=== PATIENT | female | born 1985 | race Caucasian/White ===

== ENCOUNTER 2021-07-03 12:35 | Outpatient (REF) | payer OTHER, SELFPAY ==
[2021-07-05 14:40] LABS: COVID-19 RT-PCR UVMMC Result Negative (Negative)
== END 2021-07-03 12:36 | disposition home or self-care (01) ==
LOC: LBN 12:35
PROVIDERS: PCP Family Medicine; Visit Provider Physician Assistant Medical
DX: Z20.822 Contact with and (suspected) exposure to COVID-19 (principal); J02.9 Acute pharyngitis, unspecified
CPT/HCPCS: U0003; 87070

== ENCOUNTER 2021-09-25 19:11 | Outpatient (REF) | payer OTHER, SELFPAY ==
[2021-09-25 20:48] LABS: Anion Gap 13.9 mmol/L (3-11); BUN 6 mg/dL (7-18); CO2 23.1 mmol/L (21.0-32.0); CREATININE 1.1 mg/dL (0.55-1.02); Calcium 8.5 mg/dL (8.5-10.1); Chloride 104 mmol/L (98-107); Estimated GFR 56.86 (mL/min/1.73m2); Glucose 128 mg/dL (74-106); Potassium 3.4 mmol/L (3.5-5.1); Sodium 141 mmol/L (136-145)
== END 2021-09-25 19:12 | disposition home or self-care (01) ==
LOC: LBN 19:11
PROVIDERS: PCP Family Medicine; Visit Provider Nurse Practitioner Family
DX: U07.1 COVID-19 (principal)
CPT/HCPCS: 80048

== ENCOUNTER 2021-10-19 19:34 | Emergency (ER) | payer OTHER, SELFPAY ==
[2021-10-19 20:08] VITALS: BP 134/91; PULSE 108; RESP 16; TEMP 36.3; O2SAT 96
[2021-10-19] MEDS: Albuterol 2.5 MG/3 ML INH SOLN VIAL UPD (20:45)
[2021-10-19] MEDS: predniSONE 20 MG TAB 40 MG PO (21:20)
[2021-10-19] MEDS: Albuterol HFA 8 GM 60 PUFF INH IH (21:28)
[2021-10-19] MEDS: Inhaler, Assist Device 1 EACH MC (21:29)
[2021-10-19 21:37] VITALS: BP 138/90; PULSE 97; RESP 16; TEMP 36.3; O2SAT 94
--- NOTE | 2021-10-19 21:42 | ED.GENADUL_ITS ---
Discharge Plan Disposition Patient Disposition: HOME Condition: Stable Discharge Details Clinical Impression: Bronchitis Primary Care Provider: Chely Cantrell V ED Provider: Marialuisa Roman Home Meds and New Rx's Prescriptions: New prednisone 20 mg tablet 40 mg PO ONCE Qty: 8 0RF Continued loratadine 10 MG tablet,disintegrating 10 mg PO PRN Label Comments: 06/18/13- Pt has not taken since Jan 2013, takes for seasonally allergies fluticasone propionate 50 mcg/actuation spray,suspension 1 spray INTRANASAL PRN PRN vfyiuchgx-GVU-SV-acetaminophen 7.5-60-30-1,000 mg/30 mL Liquid 30 ml PO PRN PRN No Action doxycycline hyclate 100 mg capsule 100 mg PO BID Qty: 20 0RF Discharge Instructions Instructions: Acute Bronchitis (ED) Additional Instructions: Use your inhaler, 2 puffs every 4 hours as needed Take the prednisone for the next several days Return earlier should you have new or worsening complaints including chest pain that is worsening, shortness of breath, fever, chills Referrals: Chely Cantrell MD [Primary Care Provider] - Discharge Data Discharge Date/Time-TO BE ENTERED AT DEPARTURE: 10/19/21 21:27 Medical Decision Making Patient appears well, she symptomatically improved Her repeat oxygen is 97% on room air and she is no longer tachycardic, 94 She is given a dose of prednisone and discharged home with 5 days of prednisone, she is given an albuterol Hailer She was comfortable discharge home at this time Return precautions discussed and patient No clinical evidence of pulmonary embolism, feeling symptomatically improved, no chest pain Lungs are clear to auscultation and no hypoxia, no indication for chest x-ray at time of my assessment Medical Records Medical records reviewed: Yes I reviewed the patient's medical records. Lab Data Lab results reviewed: Yes I reviewed the patient's lab results. HPI General Date/Time Provider Initiated Documentation: 10/19/21 19:38 . HPI Narrative: 36-year-old female is otherwise healthy presents with report of cough for the past 4 days. Patient states that she feels as though she cannot take a complete inhalation secondary to coughing and tightness. She denies history of asthma. She does not smoke tobacco. She is status post COVID approximately 3 weeks ago. She states she felt fine. Denies illness and now she is symptomatic, she suspects it is pollen related. She has been taking antihistamines daily. She denies any fever or chills. She denies chance of . She denies prior history of coagulopathy or exogenous hormones. Denies recent flights, surgeries, long drives Related Data Home Medications Medication Instructions Recorded Confirmed loratadine 10 mg disintegrating 10 mg PO PRN 05/30/13 10/20/21 tablet yjkcekdzr-WJH-GO-acetaminophen 7.5 30 ml PO PRN PRN 10/19/21 10/19/21 mg-60 [id number]/30mL oral liqd fluticasone propionate 50 1 spray intranasal PRN PRN 10/19/21 10/20/21 mcg/actuation nasal spray,suspension prednisone 20 mg tablet 40 mg PO ONCE #8 tabs 10/19/21 10/20/21 doxycycline hyclate 100 mg capsule 100 mg PO BID #20 caps 10/20/21 Previous Rx's Medication Instructions Recorded prednisone 20 mg tablet 40 mg PO ONCE #8 tabs 10/19/21 doxycycline hyclate 100 mg capsule 100 mg PO BID #20 caps 10/20/21 Allergies Allergy/AdvReac Type Severity Reaction Status Date / Time amoxicillin [Amoxicillin] Allergy Severe hives Unverified 10/20/21 08:38 azithromycin Allergy Severe Hives Unverified 10/20/21 08:38 Penicillins Allergy Severe Hives Unverified 10/20/21 08:38 shellfish derived Allergy Severe hives Unverified 10/20/21 08:38 gluten AdvReac Severe Unverified 10/20/21 08:38 General Stated Complaint: RespSymp BEN: 3 Review of Systems All systems reviewed & are unremarkable except as noted in HPI and below PFSH All Active Problems (Updated 10/20/21 @ 11:06 by SILVA Hicks) Bronchitis (Acute) Pneumonia (Acute) Social History Smoking/Tobacco Use Status: Never Smoking risk assessment performed?: Yes Alcohol Intake: current Alcohol Intake frequency: holidays/special occasions only Drug use: Never Do you feel safe at home: Yes Do you feel safe in your relationship?: Yes Exam Const General: cooperative, comfortable and no acute distress Orientation: alert and oriented x3 Resp Effort & Inspection: normal respiratory effort Auscultation: clear to auscultation bilaterally Cardio Rate: regular rate Rhythm: regular rhythm Skin General skin exam: no rashes or lesions noted Neuro General: patient alert and patient oriented x3 Extrem Other: No calf swelling or tenderness appreciated Course Vital Signs Vital signs: Vital Signs Temperature 36.3 C L 10/19/21 20:08 Pulse 108 H 10/19/21 20:08 Respiratory Rate 16 10/19/21 20:08 Blood Pressure 134/91 H 10/19/21 20:08 Pulse Oximetry 96 10/19/21 20:08 Temperature 36.3 C L 10/19/21 20:08 Temperature Source Skin 10/19/21 20:08 Pulse 108 H 10/19/21 20:08 Respiratory Rate 16 10/19/21 20:08 Respiratory Effort 10/19/21 20:19 Blood Pressure 134/91 H 10/19/21 20:08 Blood Pressure Position Sitting 10/19/21 20:08 Pulse Oximetry 96 10/19/21 20:08 Oxygen Delivery Method Room Air 10/19/21 20:08 Oxygen Flow Rate 0 10/19/21 20:08 Pain Level 5 10/19/21 20:08
== END 2021-10-19 21:27 | disposition home or self-care (01) ==
PROVIDERS: Emergency Provider Physician Assistant; PCP Family Medicine
DX: J20.9 Acute bronchitis, unspecified (principal)
CPT/HCPCS: 94640; 99283; J7512; J7613

== ENCOUNTER 2021-10-20 08:27 | Emergency (ER) | payer OTHER, SELFPAY ==
[2021-10-20 08:34] VITALS: BP 135/82; PULSE 106; RESP 16; TEMP 36.8; O2SAT 95
[2021-10-20 09:04] LABS: Abs Immature Grans 0.03 10^3/uL (0.0-0.06); Absolute Basophil Count 0.02 10^3/uL (0.0-0.2); Absolute Eosinophil Count 0.01 10^3/uL (0.0-0.7); Absolute Lymphocyte Count 2.29 10^3/uL (1.2-3.4); Absolute Monocyte Count 0.36 10^3/uL (0.1-0.8); Absolute Neutrophil Count 5.71 10^3/uL (1.2-6.7); Basophils % 0.2; Eosinophils % 0.1; HCT 42.3 % (36.0-46.0); Immature Grans % 0.4; Lymphocytes % 27.2; MCH 29.8 pg (27.0-33.0); MCHC 35.5 % (32.0-36.0); MCV 84 fL (80-95); MPV 9.8 fL (8.0-11.0); Monocytes % 4.3; Neutrophils % 67.8; Platelet Count 289 10^3/uL (130-400); RBC 5.03 10^6/uL (3.93-5.22); RDW 12.7 % (11.7-14.6); RDW-SD 37.9 fL; WBC 8.42 10^3/uL (4.4-10.8)
--- NOTE | 2021-10-20 09:08 | ED.GENADUL_ITS ---
Discharge Plan Disposition Patient Disposition: HOME Condition: Stable Discharge Details Clinical Impression: Pneumonia Primary Care Provider: Chely Cantrell V ED Provider: Kamron Cruz Home Meds and New Rx's Prescriptions: New doxycycline hyclate 100 mg capsule 100 mg PO BID Qty: 20 0RF Continued loratadine 10 MG tablet,disintegrating 10 mg PO PRN Label Comments: 06/18/13- Pt has not taken since Jan 2013, takes for seasonally allergies fluticasone propionate 50 mcg/actuation spray,suspension 1 spray INTRANASAL PRN PRN ycmuwweol-MWD-LY-acetaminophen 7.5-60-30-1,000 mg/30 mL Liquid 30 ml PO PRN PRN prednisone 20 mg tablet 40 mg PO ONCE Qty: 8 0RF Discharge Instructions Instructions: Pneumonia (ED) Additional Instructions: Work-up reveals no evidence of PE. Doxycycline as directed for pneumonia. Continue the medications prescribed to you yesterday during your ER visit. Please watch for new or worsening symptoms and return to the ER for any concern s. Lastly, please contact your primary care provider to discuss your ER visit and need for outpatient reevaluation Medical Decision Making 36-year-old female who is 2-3 weeks status post COVID presents to the ER today reporting being diagnosed with bronchitis yesterday, cough x1 week, this morning with 1 episode of hemoptysis. Clinically she appears well, nontoxic, no respiratory distress. Plan is to obtain routine laboratory values including a D-dimer given her recent COVID diagnosis in the setting of hemoptysis. At this time no indication for breathing treatment as lungs are clear to auscultation Laboratory values are grossly unremarkable for any obvious emergent process. Awaiting D-dimer D-dimer minimally elevated at 547, will pursue CTA of the chest. Heart rate is currently 92. O2 sats 96% on room air. Patient appears well, nontoxic, no respiratory distress CTA reveals no PE but she does have patchy infiltrates on the right middle and lower lobe. Discussed findings with patient and will initiate doxycycline therapy for pneumonia. She will continue taking the medications prescribed yesterday as well Standard discharge and return precautions were provided. Patient understands, is agreeable to this plan, and has no additional questions or concerns upon discharge. This documentation was generated using [employer] system, please disregard any oddities of phrase or misspellings. Medical Records Medical records reviewed: Yes I reviewed the patient's medical records. Imaging Data Radiologic Study: Attestation: I personally reviewed and interpreted this imaging study as follows: Imaging: CT Scan Radiologist's impression: CT CHEST PE CTA EXAM: CT CHEST PE CTA CLINICAL HISTORY: 2weeks s/p covid, hemoptysis, tachy, elevated dime. TECHNIQUE: Imaging Protocol: Axial CT angiography was performed with multi- slice acquisition and multi-planar reconstructions as well as axial, coronal and sagittal MIP reconstructions. CONTRAST MATERIAL: Intravenous: Omnipaque 350 Contrast volume:100 ml COMPARISON: No exams were available for comparison FINDINGS: Pulmonary Arteries: No evidence of filling defect to suggest pulmonary emboli. Tracheobronchial tree: Patent where visualized. Mediastinum and Mandy: No dominant adenopathy or fluid collection. Pulmonary parenchyma: Patchy right lower lobe and right middle lobe infiltrates. No consolidation or dominant measurable mass. Pleura: No effusion or pneumothorax. Heart: The heart is not dilated. No coronary artery calcifications are seen. Aorta: Thoracic aorta non-dilated. No aneurysm. No dissection. Upper abdomen: Left adrenal adenoma. Bones: Unremarkable for age. Tubes, Catheters, and Lines: IMPRESSION: No evidence of pulmonary embolism. Patchy infiltrates right middle and lower lobe. Lab Data Lab results reviewed: Yes I reviewed the patient's lab results. Labs: Laboratory Tests Range/Units 10/20/21 10/20/21 10/20/21 08:57 08:57 08:57 WBC (4.4-10.8) 10^3/uL 8.42 RBC (3.93-5.22) 10^6/uL 5.03 Hgb (11.2-15.7) g/dL 15.0 Hct (36.0-46.0) % 42.3 MCV (80-95) fL 84 MCH (27.0-33.0) pg 29.8 MCHC (32.0-36.0) % 35.5 RDW (11.7-14.6) % 12.7 Plt Count (130-400) 10^3/uL 289 MPV (8.0-11.0) fL 9.8 Immature Gran % 0.4 Neutrophils % 67.8 Lymphocytes % 27.2 Monocytes % 4.3 Eosinophils % 0.1 Basophils % 0.2 Nucleated RBC % (0.0-0.3) % 0.0 Absolute Neutrophils (1.2-6.7) 10^3/uL 5.71 Absolute Lymphocytes (1.2-3.4) 10^3/uL 2.29 Absolute Monocytes (0.1-0.8) 10^3/uL 0.36 Absolute Eosinophils (0.0-0.7) 10^3/uL 0.01 Absolute Basophils (0.0-0.2) 10^3/uL 0.02 PT (9.3-11.0) sec 10.3 INR (0.9-1.1) 1.0 APTT (21.0-27.5) sec 24.5 D-Dimer (<500) ng/mlFEU 547 H Sodium (136-145) mmol/L 137 Potassium (3.5-5.1) mmol/L 3.7 Chloride (98-107) mmol/L 102 Carbon Dioxide (21.0-32.0) mmol/L 24.2 Anion Gap (3-11) mmol/L 10.8 BUN (7-18) mg/dL 8 Creatinine (0.55-1.02) mg/dL 1.0 Estimated GFR/1.73 m2 (mL/min/1.73m2) >= 60.00 Glucose (74-106) mg/dL 141 H Calcium (8.5-10.1) mg/dL 8.8 Magnesium (1.8-2.4) mg/dL 1.8 Total Bilirubin (0.2-1.0) mg/dL 0.3 AST (15-37) U/L 20 ALT (14-59) U/L 21 Alkaline Phosphatase (46-116) U/L 106 Troponin I (<or=60) ng/L < 50 Total Protein (6.4-8.2) g/dL 8.0 Albumin (3.4-5.0) g/dL 3.8 HPI General Mode of arrival: ambulatory . Date/Time Provider Initiated Documentation: 10/20/21 08:31 . Limitations to Documentation: no limitations . Information obtained by: patient . HPI Narrative: This is a 36-year-old female, denies significant past medical history, presents to the ER 2-3 weeks status post COVID, seen in the ER yesterday for cough and chest tightness that began roughly 1 week ago, this morning had 1 episode of hemoptysis which prompted her to return to the ER. She denies fever, shortness of breath, chest pain, abdominal pain, pain or swelling her lower extremities. Patient states that she did not have a work-up yesterday but did have a single dose of steroids and was provided with a neb and inhaler. She denies history of DVT or PE. She is taking nxap-qhv-zwuuyjf medications for her cough and seaso nal allergies. Related Data Home Medications Medication Instructions Recorded Confirmed loratadine 10 mg disintegrating 10 mg PO PRN 05/30/13 10/20/21 tablet rueuamtao-YDP-WX-acetaminophen 7.5 30 ml PO PRN PRN 10/19/21 10/19/21 mg-60 [id number]/30mL oral liqd fluticasone propionate 50 1 spray intranasal PRN PRN 10/19/21 10/20/21 mcg/actuation nasal spray,suspension prednisone 20 mg tablet 40 mg PO ONCE #8 tabs 10/19/21 10/20/21 doxycycline hyclate 100 mg capsule 100 mg PO BID #20 caps 10/20/21 Previous Rx's Medication Instructions Recorded prednisone 20 mg tablet 40 mg PO ONCE #8 tabs 10/19/21 doxycycline hyclate 100 mg capsule 100 mg PO BID #20 caps 10/20/21 Allergies Allergy/AdvReac Type Severity Reaction Status Date / Time amoxicillin [Amoxicillin] Allergy Severe hives Unverified 10/20/21 08:38 azithromycin Allergy Severe Hives Unverified 10/20/21 08:38 Penicillins Allergy Severe Hives Unverified 10/20/21 08:38 shellfish derived Allergy Severe hives Unverified 10/20/21 08:38 gluten AdvReac Severe Unverified 10/20/21 08:38 General Stated Complaint: RespSymp BEN: 3 Review of Systems Constitutional Constitutional: Denies fever(s) and Denies headache(s) ENT Ears, Nose, Mouth, and Throat: Denies headache(s) and Denies neck pain Cardiovascular Cardiovascular: Denies chest pain and Denies dyspnea Respiratory Respiratory: Reports cough and Denies dyspnea Gastrointestinal Gastrointestinal: Denies abdominal pain, Denies nausea and Denies vomiting Musculoskeletal Musculoskeletal: Denies back pain and Denies neck pain Integumentary/Breasts Skin/Breast: Denies rash Neurologic Neurologic: Denies headache(s) Hematologic/Lymphatic Hematologic/Lymphatic: Denies easy bleeding and Denies easy bruising PFSH All Active Problems (Updated 10/20/21 @ 11:06 by SILVA Hicks) Bronchitis (Acute) Pneumonia (Acute) Social History Smoking/Tobacco Use Status: Never Smoking risk assessment performed?: Yes Alcohol Intake: current Alcohol Intake frequency: holidays/special occasions only Drug use: Never Do you feel safe at home: Yes Do you feel safe in your relationship?: Yes Exam Const General: cooperative, healthy appearing, comfortable and no acute distress Orientation: alert and awake HENMT Head: normal to inspection, normocephalic and atraumatic Face and sinus: normal facial exam Mouth: moist mucous membranes Throat: posterior oropharynx normal Eyes Conjunctivae: conjunctivae normal Neck Neck: normal visual inspection, full ROM, trachea midline and supple Resp Effort & Inspection: normal respiratory effort, able to speak in complete sentences and cough Quality of cough: dry Auscultation: clear to auscultation bilaterally Cardio Rate: tachycardic (102) Rhythm: regular rhythm GI Palpation: not soft and nontender Back/Spine/Pelvis Back: No back tenderness Skin General skin exam: no rashes or lesions noted Neuro General: patient alert, patient awake, moves all extremities and no focal motor deficits Cognition: normal cognition Speech: speech normal Gait: normal gait Motor: muscle tone normal throughout Sensory Exam: no sensory deficits noted Extrem General: normal to inspection, full ROM, capillary refill normal, no pedal edema and no calf tenderness Psych Appearance: grossly normal Mental Status: mental status grossly normal Course Vital Signs Vital signs: Vital Signs Temperature 36.8 C 10/20/21 08:34 Pulse 106 H 10/20/21 08:34 Respiratory Rate 16 10/20/21 08:34 Blood Pressure 135/82 10/20/21 08:34 Pulse Oximetry 95 10/20/21 08:34 Temperature 36.8 C 10/20/21 08:34 Pulse 106 H 10/20/21 08:34 Respiratory Rate 16 10/20/21 08:34 Respiratory Effort 10/20/21 08:39 Respiratory Depth Normal 10/20/21 08:39 Blood Pressure 135/82 10/20/21 08:34 Pulse Oximetry 95 10/20/21 08:34 Lab/Test Results Lab/Test Results: Laboratory Tests Range/Units 10/20/21 08:57 WBC (4.4-10.8) 10^3/uL 8.42 RBC (3.93-5.22) 10^6/uL 5.03 Hgb (11.2-15.7) g/dL 15.0 Hct (36.0-46.0) % 42.3 MCV (80-95) fL 84 MCH (27.0-33.0) pg 29.8 MCHC (32.0-36.0) % 35.5 RDW (11.7-14.6) % 12.7 Plt Count (130-400) 10^3/uL 289 MPV (8.0-11.0) fL 9.8 Immature Gran % 0.4 Neutrophils % 67.8 Lymphocytes % 27.2 Monocytes % 4.3 Eosinophils % 0.1 Basophils % 0.2 Nucleated RBC % (0.0-0.3) % 0.0 Absolute Neutrophils (1.2-6.7) 10^3/uL 5.71 Absolute Lymphocytes (1.2-3.4) 10^3/uL 2.29 Absolute Monocytes (0.1-0.8) 10^3/uL 0.36 Absolute Eosinophils (0.0-0.7) 10^3/uL 0.01 Absolute Basophils (0.0-0.2) 10^3/uL 0.02 POC- Test(urine) Negative
[2021-10-20 09:30] LABS: PTT Activated 24.5 sec (21.0-27.5); Prothrombin Time 10.3 sec (9.3-11.0)
[2021-10-20 09:34] LABS: ALT 21 U/L (14-59); AST 20 U/L (15-37); Albumin 3.8 g/dL (3.4-5.0); Alkaline Phosphatase 106 U/L (46-116); Anion Gap 10.8 mmol/L (3-11); BUN 8 mg/dL (7-18); Bilirubin, Total 0.3 mg/dL (0.2-1.0); CO2 24.2 mmol/L (21.0-32.0); Calcium 8.8 mg/dL (8.5-10.1); Chloride 102 mmol/L (98-107); Glucose 141 mg/dL (74-106); Magnesium 1.8 mg/dL (1.8-2.4); Potassium 3.7 mmol/L (3.5-5.1); Sodium 137 mmol/L (136-145); Troponin I < 50 ng/L (<or=60)
--- NOTE | 2021-10-20 09:45 | DI.CT_ITS ---
Exam(s) CT CHEST PE CTA EXAM: CT CHEST PE CTA CLINICAL HISTORY: 2weeks s/p covid, hemoptysis, tachy, elevated dime. TECHNIQUE: Imaging Protocol: Axial CT angiography was performed with multi-slice acquisition and mu lti-planar reconstructions as well as axial, coronal and sagittal MIP reconstructions. CONTRAST MATERIAL: Intravenous: Omnipaque 350 Contrast volume:100 ml COMPARISON: No exams were available for comparison FINDINGS: Pulmonary Arteries: No evidence of filling defect to suggest pulmonary emboli. Tracheobronchial tree: Patent where visualized. Mediastinum and Mandy: No dominant adenopathy or fluid collection. Pulmonary parenchyma: Patchy right lower lobe and right middle lobe infiltrates. No consolidation or dominant measurable mass. Pleura: No effusion or pneumothorax. Heart: The heart is not dilated. No coronary artery calcifications are seen. Aorta: Thoracic aorta non-dilated. No aneurysm. No dissection. Upper abdomen: Left adrenal adenoma. Bones: Unremarkable for age. Tubes, Catheters, and Lines: IMPRESSION: No evidence of pulmonary embolism. Patchy infiltrates right middle and lower lobe. RADIATION DOSE DELIVERED: 670.95mGy.cm Total DLP DATA REPOSITORY: All CT scans at this facility are submitted to the National Radiology Data Registry (NRDR) Dose Index Registry (DIR) with the [employer] (A[employer]). RADIATION OPTIMIZATION: All CT scans at this facility use at least one of these dose optimization te chniques: automated exposure control; mA and/or kV adjustment per patient size (includes targeted exa ms where dose is matched to clinical indication); or iterative reconstruction.
[2021-10-20 09:49] LABS: D-Dimer 547 ng/mlFEU (<500)
[2021-10-20] MEDS: Omnipaque 350 MG/ML 100 ML BTL IJ (10:30)
[2021-10-20] MEDS: Normal Saline Flush 10 ML SYR IVP (10:30)
[2021-10-20 11:08] VITALS: BP 130/68; PULSE 95; RESP 16; O2SAT 98
[2021-10-20] MEDS: Doxycycline Hyclate 100 MG CAP PO (11:09)
== END 2021-10-20 11:14 | disposition home or self-care (01) ==
PROVIDERS: Emergency Provider Physician Assistant; PCP Family Medicine
DX: J18.9 Pneumonia, unspecified organism (principal); Z86.16 Personal history of COVID-19; R79.1 Abnormal coagulation profile; R04.2 Hemoptysis; R00.0 Tachycardia, unspecified
CPT/HCPCS: 36415; 71275; 80053; 81025; 99285; 83735; 84484; 85025; 85379; 85610; 85730; 99284; J3490

== ENCOUNTER 2022-02-17 15:44 | Outpatient (REF) | payer OTHER, SELFPAY ==
--- NOTE | 2022-02-17 14:20 | PAPFT_PTH ---
PATIENT: Joyce Madden LOC: [facility] U#:[id number] AGE/SX: 36/F ROOM: RE02/17/[address]: JAIRON Perez : 1985 BED: DIS: 02/17/2022 SPEC #: [id number] RECD: 02/18/22 12:56 STATUS: DAVID REQ #: [id number] GUY: 02/17/22 14:[address]: Cassie Beatty DEPT: [facility] Cytology RECD BY: Marialuisa June Tissues: 1 - CX/ENDOCX FOR PAP SMEARS Procedures: PAP THIN PREP/UVM Screening HPV DNA PROBE Comments: [id number]
== END 2022-02-17 15:45 | disposition home or self-care (01) ==
LOC: LBN 15:44
PROVIDERS: PCP Nurse Practitioner Family; Visit Provider Nurse Practitioner Family
DX: Z12.4 Encounter for screening for malignant neoplasm of cervix (principal); Z11.51 Encounter for screening for human papillomavirus (HPV)
CPT/HCPCS: 88142; 87624

== ENCOUNTER 2022-03-11 04:48 | Outpatient (CLI) | payer OTHER, SELFPAY ==
[2022-03-11 08:30] LABS: Hemoglobin A1C 5.4 % (<5.7)
[2022-03-11 08:55] LABS: Anion Gap 6.1 mmol/L (3-11); BUN 13 mg/dL (7-18); CO2 27.9 mmol/L (21.0-32.0); CREATININE 0.9 mg/dL (0.55-1.02); Calculated LDL 119 mg/dL (<100); Chloride 105 mmol/L (98-107); Cholesterol 199 mg/dL (<200); Estimated GFR 86.03 (mL/min/1.73m2); Glucose 92 mg/dL (74-106); HDL Cholesterol 52 mg/dL (40-60); Potassium 4.2 mmol/L (3.5-5.1); Sodium 139 mmol/L (136-145); TSH (W/Ref FT4) 1.01 uIU/mL (0.36-3.74); Triglyceride 142 mg/dL (<150)
== END 2022-03-11 04:49 | disposition home or self-care (01) ==
PROVIDERS: PCP Nurse Practitioner Family; Visit Provider Nurse Practitioner Family
DX: Z00.00 Encounter for general adult medical examination without abnormal findings (principal)
CPT/HCPCS: 36415; 80048; 80061; 83036; 84443

== ENCOUNTER 2022-06-28 17:53 | Emergency (ER) | payer OTHER, SELFPAY ==
[2022-06-28 17:58] VITALS: BP 142/95; PULSE 124; RESP 20; TEMP 36.8; O2SAT 97
--- NOTE | 2022-06-28 18:15 | RT.EKG_ITS ---
APPROVED REPORT Exam: Resting ECG Reason for Exam: Shortness of breath Patient Location: E HR:104 bpm ECG Measurements Heart Rate 104 AXIS AK 152 P 40 QRSd 81 QRS 13 QT 330 T 3 QTc 435 Conclusion Sinus tachycardia...rate> 99 sinus tach, normal axis, non ischemic
--- NOTE | 2022-06-28 18:23 | DI.CT_ITS ---
Exam(s) CT CHEST PE CTA EXAM: CT CHEST PE CTA CLINICAL HISTORY: Shortness of breath. TECHNIQUE: Imaging Protocol: CT angiography of the chest was performed using pulmonary embolus candy col. Multi planar reconstructions were performed. CONTRAST MATERIAL: Intravenous: Omnipaque 350 Contrast volume: 100 cc COMPARISON: CT CT CHEST PE CTA from 10/20/2021 FINDINGS: CHEST: PULMONARY ARTERIES: Less than optimal bolus filling of the pulmonary arterial tree. For, there are n o obvious intraluminal filling defects to suggest the presence of acute pulmonary emboli. LUNGS: There are no infiltrates nor evidence of pulmonary infarction. No ominous pulmonary nodules.. There are no pleural effusions. MEDIASTINUM: There is no hilar nor mediastinal adenopathy. Visualized thyroid unremarkable. CARDIAC: Heart size is upper normal. There is no pericardial effusion.Caliber of the thoracic aorta is within normal limits. There is no significant shift of the interventricular septum. PARTIALLY VISUALIZED UPPERMOST ABDOMEN: No obvious findings OSSEOUS: No significant osseous lesions.. IMPRESSION: 1. No evidence of acute pulmonary emboli. No evidence of pulmonary infarction.No pleural effusions. 2. No confluent infiltrates. No intrathoracic adenopathy. RADIATION DOSE DELIVERED: 610.27mGy.cm Total DLP DATA REPOSITORY: All CT scans at this facility are submitted to the National Radiology Data Registry (NRDR) Dose Index Registry (DIR) with the [employer] (ACR). RADIATION OPTIMIZATION: All CT scans at this facility use at least one of these dose optimization te chniques: automated exposure control; mA and/or kV adjustment per patient size (includes targeted exa ms where dose is matched to clinical indication); or iterative reconstruction.
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
[2022-06-28] MEDS: Normal Saline - Diluent 50 ML VIAL IJ (18:37)
[2022-06-28] MEDS: Normal Saline Flush 10 ML SYR IVP (18:38)
[2022-06-28] MEDS: Omnipaque 350 MG/ML 100 ML BTL IJ (18:38)
[2022-06-28 18:39] LABS: Abs Immature Grans 0.06 10^3/uL (0.0-0.06); Absolute Basophil Count 0.08 10^3/uL (0.0-0.2); Absolute Eosinophil Count 0.37 10^3/uL (0.0-0.7); Absolute Lymphocyte Count 3.28 10^3/uL (1.2-3.4); Absolute Neutrophil Count 6.33 10^3/uL (1.2-6.7); Basophils % 0.7; Eosinophils % 3.4; HCT 41.5 % (36.0-46.0); Immature Grans % 0.5; Lymphocytes % 29.8; MCH 28.9 pg (27.0-33.0); MCHC 33.7 % (32.0-36.0); MCV 86 fL (80-95); MPV 9.9 fL (8.0-11.0); Monocytes % 8.2; Neutrophils % 57.4; Platelet Count 294 10^3/uL (130-400); RBC 4.85 10^6/uL (3.93-5.22); RDW 12.4 % (11.7-14.6); RDW-SD 38.5 fL; WBC 11.02 10^3/uL (4.4-10.8)
[2022-06-28 18:59] LABS: ALT 22 U/L (14-59); AST 12 U/L (15-37); Albumin 3.7 g/dL (3.4-5.0); Alkaline Phosphatase 107 U/L (46-116); Anion Gap 7.8 mmol/L (3-11); BUN 13 mg/dL (7-18); Bilirubin, Total 0.4 mg/dL (0.2-1.0); CO2 28.2 mmol/L (21.0-32.0); Calcium 8.6 mg/dL (8.5-10.1); Chloride 103 mmol/L (98-107); Estimated GFR 75.81 (mL/min/1.73m2); Glucose 135 mg/dL (74-106); Potassium 3.6 mmol/L (3.5-5.1); Sodium 139 mmol/L (136-145); Total Protein 7.3 g/dL (6.4-8.2); Troponin I < 50 ng/L (<or=60)
[2022-06-28] MEDS: Albuterol 2.5 MG/3 ML INH SOLN VIAL UPD (19:09)
[2022-06-28] MEDS: Normal Saline 1,000 ML 1000 ML IV (19:09)
[2022-06-28] MEDS: Benzonatate 100 MG CAP PO (19:09)
[2022-06-28 19:17] LABS: COVID-19 PCR Negative (Negative); Influenza A PCR Negative (Negative); Influenza B PCR Negative (Negative); RSV PCR Negative (Negative)
--- NOTE | 2022-06-28 19:24 | DI.VRAD_ITS ---
PROCEDURE INFORMATION: Exam: CTA Chest With Contrast Exam date and time: 06/28/2022 6:34 PM Age: 36 years old Clinical indication: Other: SOB, chest pain/pressure TECHNIQUE: Imaging protocol: Computed tomographic angiography of the chest with contrast. 3D rendering (Not supervised by radiologist): MIP and/or 3D reconstructed images were created by the technologist. Radiation optimization: All CT scans at this facility use at least one of these dose optimization techniques: automated exposure control; mA and/or kV adjustment per patient size (includes targeted exams where dose is matched to clinical indication); or iterative reconstruction. Contrast material: OMNIPAQUE 350; Contrast volume: 100 ml; Contrast route: INTRAVENOUS (IV); COMPARISON: CT CHEST PE CTA 10/20/2021 10:24 AM FINDINGS: Pulmonary arteries: No acute pulmonary emboli. Aorta: Unremarkable. No aortic aneurysm. No aortic dissection. Lungs: Minimal bilateral upper and lower lobe bronchial wall thickening, compatible with reactive airway disease or bronchitis. Pleural spaces: Unremarkable. No pneumothorax. No pleural effusion. Heart: Unremarkable. No cardiomegaly. No pericardial effusion. Lymph nodes: Unremarkable. No enlarged lymph nodes. Adrenal glands: Partially visualized 17 mm benign left adrenal adenoma. Bones/joints: Unremarkable. No acute fracture. Soft tissues: Unremarkable. IMPRESSION: 1. No acute pulmonary emboli. 2. Minimal bilateral upper and lower lobe bronchial wall thickening, compatible with reactive airway disease or bronchitis. Dictated and Authenticated by: Cj Bravo MD. Ordering:FAVIOLA Reinoso MD
[2022-06-28 19:31] LABS: Source Nasopharynx
[2022-06-28 20:24] VITALS: PULSE 104; RESP 20; O2SAT 94
--- NOTE | 2022-06-30 08:48 | NUR.NOTE ---
Nursing Note: Accessed chart to determine orders for EKG and to determine whether or not one needs to be cancelled.
== END 2022-06-28 20:25 | disposition home or self-care (01) ==
PROVIDERS: Emergency Provider Nurse Practitioner Family; PCP Nurse Practitioner Family
DX: J20.9 Acute bronchitis, unspecified (principal); R00.0 Tachycardia, unspecified; D72.821 Monocytosis (symptomatic); R74.01 Elevation of levels of liver transaminase levels; R73.9 Hyperglycemia, unspecified; Z77.22 Contact with and (suspected) exposure to environmental tobacco smoke (acute) (chronic); Z20.822 Contact with and (suspected) exposure to COVID-19
CPT/HCPCS: 71275; 80053; 81025; 87637; 93005; 94640; 96360; 99285; 84484; 85025; 93010; 99284; J3490; J7613

== ENCOUNTER 2022-12-28 15:43 | Emergency (ER) | payer OTHER, SELFPAY ==
[2022-12-28] VITALS (24 sets, daily range): BP systolic 126–138; BP diastolic 70–105; PULSE 99–120; RESP 18–20; TEMP 36.8; O2SAT 90–99
--- NOTE | 2022-12-28 15:45 | RT.EKG_ITS ---
APPROVED REPORT Exam: Resting ECG Reason for Exam: sob Patient Location: E HR:112 bpm ECG Measurements Heart Rate 112 AXIS MN 147 P 0 QRSd 71 QRS -19 QT 298 T -17 QTc 407 Conclusion Sinus tachycardia...rate> 99 Inferior infarct, old...Q >35mS, II III aVF sinus tachycardua, left axus, inferior q waves with poor r wave progression anteriorly
--- NOTE | 2022-12-28 16:00 | DI.CT_ITS ---
Exam(s) CT CHEST PE CTA EXAM: CT CHEST PE CTA CLINICAL HISTORY: hemoptysis, tachycardia, cough, chest pain. TECHNIQUE: Imaging Protocol: Axial CT angiography was performed with multi-slice acquisition and mu lti-planar reconstructions as well as axial, coronal and sagittal MIP reconstructions. CONTRAST MATERIAL: Intravenous: Omnipaque 350 Contrast volume:100 ml COMPARISON: CT CT CHEST PE CTA from 10/20/[address] CHEST PE CTA from 06/28/2022 FINDINGS: Pulmonary Arteries: Somewhat limited by respiratory motion. No evidence of filling defect to suggest pulmonary emboli. Tracheobronchial tree: Patent where visualized. Mediastinum and Mandy: No dominant adenopathy or fluid collection. Pulmonary parenchyma: No consolidation or dominant measurable mass. Expiratory changes. Pleura: No effusion or pneumothorax. Heart: The heart is not dilated. No coronary artery calcifications are seen. Aorta: Thoracic aorta non-dilated. No aneurysm. No dissection. Upper abdomen: Stable left adrenal adenoma. No follow-up recommended. Bones: Unremarkable for age. Tubes, Catheters, and Lines: IMPRESSION: No evidence of pulmonary embolism or other acute abnormality in the chest. RADIATION DOSE DELIVERED: 689.86mGy.cm Total DLP DATA REPOSITORY: All CT scans at this facility are submitted to the National Radiology Data Registry (NRDR) Dose Index Registry (DIR) with the [employer] [place] (A[employer]). RADIATION OPTIMIZATION: All CT scans at this facility use at least one of these dose optimization te chniques: automated exposure control; mA and/or kV adjustment per patient size (includes targeted exa ms where dose is matched to clinical indication); or iterative reconstruction.
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
[2022-12-28 16:24] LABS: Abs Immature Grans 0.05 10^3/uL (0.0-0.06); Absolute Basophil Count 0.08 10^3/uL (0.0-0.2); Absolute Eosinophil Count 0.15 10^3/uL (0.0-0.7); Absolute Lymphocyte Count 3.33 10^3/uL (1.2-3.4); Absolute Monocyte Count 0.99 10^3/uL (0.1-0.8); Basophils % 0.7; Eosinophils % 1.3; HCT 40.5 % (36.0-46.0); HGB 13.6 g/dL (11.2-15.7); Immature Grans % 0.4; Lymphocytes % 29.3; MCH 28.2 pg (27.0-33.0); MCHC 33.6 % (32.0-36.0); MCV 84 fL (80-95); MPV 9.4 fL (8.0-11.0); Monocytes % 8.7; Neutrophils % 59.6; Platelet Count 320 10^3/uL (130-400); RBC 4.83 10^6/uL (3.93-5.22); RDW 12.7 % (11.7-14.6); RDW-SD 38.4 fL; WBC 11.35 10^3/uL (4.4-10.8)
[2022-12-28 16:25] LABS: Absolute Neutrophil Count 6.76 10^3/uL (1.2-6.7)
[2022-12-28 16:38] LABS: PTT Activated 26.3 sec (21.5-31.9)
[2022-12-28 16:47] LABS: ALT 19 U/L (14-59); AST 12 U/L (15-37); Albumin 3.7 g/dL (3.4-5.0); Alkaline Phosphatase 108 U/L (46-116); Anion Gap 11.2 mmol/L (3-11); BUN 8 mg/dL (7-18); Bilirubin, Total 0.5 mg/dL (0.2-1.0); CO2 22.8 mmol/L (21.0-32.0); CREATININE 0.9 mg/dL (0.55-1.02); Calcium 8.4 mg/dL (8.5-10.1); Chloride 104 mmol/L (98-107); Glucose 103 mg/dL (74-106); NT-proBNP 6 pg/mL (<300); Potassium 3.7 mmol/L (3.5-5.1); Sodium 138 mmol/L (136-145); Total Protein 7.4 g/dL (6.4-8.2)
[2022-12-28 16:48] LABS: Troponin I < 50 ng/L (<or=60)
[2022-12-28] MEDS: Dexamethasone 10 MG/ML VIAL IVP (17:05)
[2022-12-28] MEDS: Albuterol 2.5 MG/3 ML INH SOLN VIAL UPD (17:05)
[2022-12-28] MEDS: Normal Saline 1,000 ML 1000 ML IV (17:05)
[2022-12-28] MEDS: Omnipaque 350 MG/ML 100 ML BTL IJ (18:23)
[2022-12-28] MEDS: Normal Saline Flush 10 ML SYR IVP (18:24)
[2022-12-28] MEDS: Normal Saline - Diluent 50 ML VIAL IJ (18:24)
== END 2022-12-28 19:54 | disposition home or self-care (01) ==
PROVIDERS: Emergency Provider Emergency Medicine; PCP Nurse Practitioner Family
DX: R04.2 Hemoptysis (principal); R05.9 Cough, unspecified; R07.89 Other chest pain; J40 Bronchitis, not specified as acute or chronic; R00.0 Tachycardia, unspecified; Z80.1 Family history of malignant neoplasm of trachea, bronchus and lung
CPT/HCPCS: 71275; 80053; 81025; 93005; 94640; 96374; 99285; 83880; 84484; 85025; 85610; 85730; 93010; 99284; J1100; J3490; J7613

== ENCOUNTER 2022-12-30 08:16 | Outpatient (RCR) | payer OTHER, SELFPAY ==
--- NOTE | 2022-12-30 08:15 | HOLTER_ITS ---
APPROVED REPORT Conclusion This is a 48-hour Holter monitor, ordered for tachycardia Rhythm throughout is sinus. Average heart rate is 88. Minimum was 64, maximum 126 There were a total of 12 isolated ventricular ectopic beats There were no supraventricular dysrhythmias Patient symptoms did not correspond to any dysrhythmia
== END 2022-12-30 23:59 | disposition home or self-care (01) ==
LOC: CARDOPNVT 08:16
PROVIDERS: PCP Nurse Practitioner Family; Visit Provider Nurse Practitioner Family
DX: R00.0 Tachycardia, unspecified (principal)
CPT/HCPCS: 93225

== ENCOUNTER 2023-01-11 03:08 | Outpatient (CLI) | payer OTHER, SELFPAY ==
[2023-01-11] MEDS: Albuterol HFA 18 GM 200 PUFF INH IH (17:03)
[2023-01-11] MEDS: Methacholine 100 MG VIAL IH (17:03)
[2023-01-11] MEDS: Inhaler, Assist Device 1 EACH MC (17:04)
--- NOTE | 2023-01-18 09:08 | W.PFT ---
Date of service: 01/11/23 Time of Service: 14:44 Pulmonary Function Test Result Indications: Dyspnea Interpretation Spirometry: There is no baseline airflow limitation. There was a 11% decrease in FEV1 with administration of 16mg/mL methacholine. Lung Volumes: Normal lung volumes Diffusion Capacity: Increased diffusion Airway Pressure: Normal airway resistance. Impression Normal pulmonary function testing with a negative methacholine challenge. The elevated diffusion is due to obesity. Clinical Correlation therefore is recommended.
== END 2023-01-11 03:09 | disposition home or self-care (01) ==
LOC: RT 03:08
PROVIDERS: PCP Nurse Practitioner Family; Visit Provider Nurse Practitioner Family
DX: R06.00 Dyspnea, unspecified (principal)
CPT/HCPCS: 94060; 94070; 94726; 94729; 94010; J7674

== ENCOUNTER 2023-01-11 10:36 | Outpatient (RCR) | payer OTHER, SELFPAY | END 2023-01-29 23:59 | disposition home or self-care (01) | LOC: CARDOPNVT 10:36 | PROVIDERS: PCP Nurse Practitioner Family; Visit Provider Nurse Practitioner Family | DX: R00.0 Tachycardia, unspecified (principal) | CPT/HCPCS: 93226 ==

== ENCOUNTER 2023-06-14 03:13 | Outpatient (CLI) | payer OTHER, SELFPAY ==
[2023-06-14 11:27] LABS: Panorama Kit Sent via Fed Ex
[2023-06-14 11:34] LABS: Abs Immature Grans 0.04 10^3/uL (0.0-0.06); Absolute Basophil Count 0.04 10^3/uL (0.0-0.2); Absolute Eosinophil Count 0.11 10^3/uL (0.0-0.7); Absolute Lymphocyte Count 2.46 10^3/uL (1.2-3.4); Absolute Monocyte Count 0.71 10^3/uL (0.1-0.8); Absolute Neutrophil Count 6.56 10^3/uL (1.2-6.7); Basophils % 0.4; Eosinophils % 1.1; HGB 13.8 g/dL (11.2-15.7); Immature Grans % 0.4; Lymphocytes % 24.8; MCH 29.5 pg (27.0-33.0); MCHC 35.4 % (32.0-36.0); MCV 83 fL (80-95); MPV 10.1 fL (8.0-11.0); Monocytes % 7.2; Neutrophils % 66.1; Platelet Count 301 10^3/uL (130-400); RBC 4.68 10^6/uL (3.93-5.22); RDW 13.1 % (11.7-14.6); RDW-SD 39.7 fL; WBC 9.92 10^3/uL (4.4-10.8)
[2023-06-14 11:48] LABS: Glucose,1 Hr (Glucola) 145 mg/dL (80-140)
[2023-06-14 12:00] LABS: TSH (W/Ref FT4) 0.65 uIU/mL (0.36-3.74)
[2023-06-14 18:34] LABS: Hepatitis B Surface Ag Negative (Negative)
[2023-06-14 19:09] LABS: Hepatitis C Ab w Rflx HCV PCR Negative (Negative)
[2023-06-14 19:55] LABS: HIV-1/2 Ag & Ab Screen Negative (Negative)
[2023-06-15 10:52] LABS: Varicella IgG Antibody Positive (See Note)
[2023-06-15 10:59] LABS: Rubella IgG Ab (UVM) Positive (See Note)
[2023-06-16 15:17] LABS: Syphilis IgG w/Reflex Nonreactive (Nonreactive)
== END 2023-06-14 03:14 | disposition home or self-care (01) ==
LOC: LBO 03:13
PROVIDERS: PCP Nurse Practitioner Family; Visit Provider Advanced Practice Midwife
DX: Z34.91 Encounter for supervision of normal pregnancy, unspecified, first trimester (principal)
CPT/HCPCS: 36415; 82950; 86787; 86803; 86850; 86900; 86901; 87340; 87389; 84443; 85025; 86762; 86780

== ENCOUNTER 2023-06-14 12:52 | Outpatient (REF) | payer OTHER, SELFPAY ==
[2023-06-15 12:58] LABS: Chlamydia Result Negative (Negative); GC Result Negative (Negative)
== END 2023-06-14 12:53 | disposition home or self-care (01) ==
LOC: LBN 12:52
PROVIDERS: PCP Nurse Practitioner Family; Visit Provider Advanced Practice Midwife
DX: Z34.91 Encounter for supervision of normal pregnancy, unspecified, first trimester (principal); Z11.3 Encounter for screening for infections with a predominantly sexual mode of transmission; Z3A.11 11 weeks gestation of pregnancy
CPT/HCPCS: 80348; 87491; 87591; 87086

== ENCOUNTER 2023-06-23 01:29 | Outpatient (CLI) | payer OTHER, SELFPAY ==
[2023-06-23 10:21] LABS: Glucose 1 Hour 183 mg/dL
[2023-06-23 12:30] LABS: Glucose 3 Hour 62 mg/dL
== END 2023-06-23 01:30 | disposition home or self-care (01) ==
LOC: LBO 01:29
PROVIDERS: PCP Nurse Practitioner Family; Visit Provider Advanced Practice Midwife
DX: Z34.91 Encounter for supervision of normal pregnancy, unspecified, first trimester (principal)
CPT/HCPCS: 36415; 82951

== ENCOUNTER 2023-10-06 05:13 | Outpatient (CLI) | payer OTHER, SELFPAY ==
[2023-10-06 09:20] LABS: Abs Immature Grans 0.09 10^3/uL (0.0-0.06); Absolute Basophil Count 0.03 10^3/uL (0.0-0.2); Absolute Lymphocyte Count 2.35 10^3/uL (1.2-3.4); Absolute Monocyte Count 0.84 10^3/uL (0.1-0.8); Absolute Neutrophil Count 7.63 10^3/uL (1.2-6.7); Basophils % 0.3 %; Eosinophils % 0.9 %; HCT 36.4 % (36.0-46.0); HGB 12.9 g/dL (11.2-15.7); Immature Grans % 0.8 %; Lymphocytes % 21.3 %; MCH 30.9 pg (27.0-33.0); MCHC 35.4 % (32.0-36.0); MCV 87 fL (80-95); MPV 9.8 fL (8.0-11.0); Monocytes % 7.6 %; Neutrophils % 69.1 %; Platelet Count 261 10^3/uL (130-400); RBC 4.18 10^6/uL (3.93-5.22); RDW 13.4 % (11.7-14.6); RDW-SD 42.9 fL; WBC 11.04 10^3/uL (4.4-10.8)
[2023-10-06 09:33] LABS: Glucose,1 Hr (Glucola) 99 mg/dL (80-140)
== END 2023-10-06 05:14 | disposition home or self-care (01) ==
LOC: LBO 05:13
PROVIDERS: Obstetrics & Gynecology; PCP Nurse Practitioner Family; Visit Provider Obstetrics & Gynecology
DX: Z34.92 Encounter for supervision of normal pregnancy, unspecified, second trimester (principal); O26.892 Other specified pregnancy related conditions, second trimester; Z67.91 Unspecified blood type, Rh negative; Z3A.28 28 weeks gestation of pregnancy
CPT/HCPCS: 36415; 82950; 86850; 90384; 85025

== ENCOUNTER 2023-12-01 13:46 | Outpatient (REF) | payer OTHER, SELFPAY | END 2023-12-01 13:47 | disposition home or self-care (01) | LOC: LBN 13:46 | PROVIDERS: PCP Nurse Practitioner Family; Visit Provider Obstetrics & Gynecology | DX: Z34.93 Encounter for supervision of normal pregnancy, unspecified, third trimester (principal); Z3A.36 36 weeks gestation of pregnancy; Z36.85 Encounter for antenatal screening for Streptococcus B | CPT/HCPCS: 87081 ==

== ENCOUNTER 2023-12-29 17:11 | Inpatient (IN) | payer OTHER, SELFPAY ==
[2023-12-29] VITALS (37 sets, daily range): BP systolic 107–132; BP diastolic 59–82; PULSE 80–129; RESP 16–20; TEMP 36.4–37.1; O2SAT 94–99
--- NOTE | 2023-12-29 17:30 | HPE_ITS ---
Date of service: 12/29/23 Time of Service: 17:30 Assessment and Plan Assessment and plan (1) : Status: Acute Assessment and plan: at 40 weeks. History of previous long induction at 42 weeks, wishes to avoid. Faustin score unfavorable. Will plan cervical ripening with misoprostol as ordered throughout the evening tonight. Anticipate Pitocin augmentation of labor tomorrow. Group B strep is negative. Risks were reviewed. (2) Elderly multigravida, currently : Status: Acute (3) Rh negative state in antepartum period: Status: Acute OB-HPI Labor/Delivery History of Present Illness Reason for Visit: Induction Chief Complaint: Scheduled Induction of Labor (Term, advanced maternal age) Indication for Induction: Other (Term, advanced maternal age). AKOSUA Calculator Estimated Delivery Date Method Current WG Current Estimate 12/29/23 LMP (Certain) 40w 0d Other Estimates 12/29/23 Ultrasound #1 40w 0d Comments: Patient presents for labor induction. She is a 2 para 1 with a previous full-term vaginal after 3-day induction at 42 weeks. She wishes to avoid a long induction process. Her last baby weighed 8 pounds 10 ounces. To this point in her she has had a relatively on complex . She is a bit advanced maternal age. She did have cell free DNA which is low risk. She has been taking baby aspirin. She is Rh- and received RhoGAM. History of Present Expected Delivery Route/Plan - FOB/ - Taye Madden (2nd child together) Specific Issues/Plan 1. BMI >40, early glucola 145; 3 hr GTT F91, 1h 183, 2h 144, 3h 62.m 10/06/23 1hr Glucola 99. 2. [place], [facility] [place] [facility] [place] MFM consult & level 2 u/s - US at DI-normal anatomy - cfDNA - low risk , CF/SMA declined - Low dose ASA 81 mg/162 mg alternating to decrease pre-e risk (BMI/AMA) 3. FOB has intracranial HTN, followed by neurology 4. Pt with undx'ed Celiac's, on gluten-free diet x10 yrs 5. RH neg, Rhogam at 28 weeks - 10/06/23. 6. Nipple pain at night - will try wearing a bra at night Screen negative on 5P's, PHQ9 score is 0 Informed Consent Informed Consent: Induction of Labor Review of Systems All systems reviewed & are unremarkable except as noted in HPI and below Constitutional Constitutional: Reports as per HPI Cardiovascular Cardiovascular: Reports as per HPI and Reports system reviewed and no additional complaints, except as documented Respiratory Respiratory: Reports as per HPI and Reports system reviewed and no additional complaints, except as documented Gastrointestinal Gastrointestinal: Reports as per HPI Musculoskeletal Musculoskeletal: Reports system reviewed and no additional complaints, except as documented Psychiatric Psychiatric: Reports system reviewed and no additional complaints, except as documented PFSH All Active Problems (Updated 06/14/23 @ 12:54 by Yisel Deshpande CNM) Rh negative state in antepartum period (Acute) Elderly multigravida, currently (Acute) Situational anxiety (Chronic) (Acute) Chronic cough (Chronic) Tachycardia (Chronic) 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 Father Hyperlipidemia Sister No problems noted. Brother No problems noted. Son No problems noted. Maternal Grandfather , 78 Diabetes Stomach cancer Prostate cancer Lung cancer Paternal Grandfather , 79 Colon cancer Maternal Grandmother Diabetes Uterine cancer Paternal Grandmother Hyperlipidemia Hypertension Heart disease Social History Smoking/Tobacco Use Status: Never Tobacco: How many years used: 0 Second Hand Exposure: Yes Smoking risk assessment performed?: Yes Alcohol Intake: current Alcohol Intake frequency: holidays/special occasions only Alcohol type: hard liquor Drug use: Never Substance use type: does not use Household members: spouse, family and children Housing: house Communication Needs: None Do you need help understanding health information?: Never Pets and animals: Yes Pets and animals: dog(s) Sexually active: Yes Do you think of yourself as: straight/heterosexual Current gender identity: female What is your relationship status?: How often do you talk on the phone with friends or family?: twice per week How often do you get together with friends or relatives?: three or more times per week How often do you attend orthodoxy or denominational services?: 4 or more times per year Do you belong to any clubs or organized social groups?: decline to answer Panel score (0-1 are the most socially isolated patients): 3 What type of physical activity do you participate in: walking Duration: 30-45 minutes/day Frequency: daily Sherrie/Samaritan: Restorationism Special sherrie needs: No Seatbelt use: always Helmet use: Yes Drive intox 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 Date GA/Weeks # Preg Succ Route Wgt Sex Labor Lgth Anesth esia Location Prov Complic 05/17/19 42 No Yes vaginal 8 lb 10 oz Male long induction regiona l [facility] Delivery Date: 05/17/19 Last Updated by: Thalia Callejas IOL for postdates, long 2nd stage, episiotomy [facility] Meds Allergies and Home Medications Allergies Allergy/AdvReac Type Severity Reaction Status Date / Time amoxicillin (Amoxicillin) Allergy Severe hives Unverified 12/27/23 14:41 azithromycin Allergy Severe Hives Unverified 12/27/23 14:41 Penicillins Allergy Severe Hives Unverified 12/27/23 14:41 shellfish derived Allergy Severe hives Unverified 12/27/23 14:41 gluten AdvReac Severe Diarrhea Unverified 12/27/23 14:41 Home Medications ?Medication ?Instructions ?Recorded ?Confirmed ?Type loratadine 10 mg disintegrating 10 mg PO DAILY PRN allergy 02/17/22 12/15/23 Rx tablet symptoms #90 tabs albuterol sulfate 90 mcg/actuation 2 puff inhalation Q6H PRN 03/26/23 12/15/23 Rx aerosol inhaler shortness of breath or wheezing #8.5 grams inhalational spacing device #1 ea 03/26/23 12/15/23 Rx (Aerochamber MV spacer) budesonide-formoterol HFA 160 2 inh inhalation BID #10.2 grams 06/06/23 12/15/23 Rx mcg-4.5 mcg/actuation aerosol inhaler (Symbicort) vitamin no.167-folic acid 1 tab PO DAILY 06/06/23 12/15/23 History 400 mcg-dha 25 mg chewable tablet (One-A-Day ) aspirin 81 mg tablet,delayed 81 mg PO DAILY #90 tabs 06/14/23 12/15/23 Rx release calcium carbonate (Calcium 500) 500 mg PO DAILY 06/14/23 12/15/23 History cholecalciferol (vitamin D3) 50 50 mcg PO DAILY 06/14/23 12/15/23 History mcg (2,000 unit) capsule Exam Physical Exam Vital Signs Reviewed: Yes Constitutional Constitutional: no acute distress Detailed Labor and Delivery Exam Dilation: 0.5 Effacement (%): 50 Cervix position: posterior Consistency: soft Faustin Score: Cervical Points Exam 0 1 2 3 Dilation Closed 1-2cm 3-4 cm 5-6cm Effacement 0-30% 40-50% 60-70% 80% Consistency Firm Medium Soft Station -3 -2 -1,0 +1,+2 Position Posterior Mid Anterior FAUSTIN Score(Cervical Ripeness Score): 4 Amniotic Membrane Status: Intact Fetus A Heart Rate Baseline: 140 Est. Weight: 8 lb 6 oz Neck Exam Neck Exam: Normal Respiratory Exam Respiratory Exam: Normal Cardiovascular Exam Cardiovascular Exam: Normal Abdominal Exam Abdominal Exam: Normal Exam Exam: Normal Extremities Exam Extremities Exam: Normal (1+ lower extremity edema) Back/Spine/Pelvis Exam Pelvis Adequate: Yes Skin Exam Skin Exam: Normal Neurological Exam Neurological Exam: Normal Psychiatric Exam Psychiatric Exam: Normal Risk Assessment Risk for Shoulder Dystocia Historical/Initial OB: POSITIVE FOR: Pre- BMI>30; NEGATIVE FOR: Pelvic Abnormality, Previous Shoulder Dystocia or Previous Macrosomia Increased Risk?: No Delivery Plan @ 40 wks: Labor induction. Risk for Pre-Eclampsia Date Initiated/Initials: to start @ 12 wks. AlbinoK Yes, if one or more: NEGATIVE FOR: Hx Pre-E/Gest HTN, Chronic HTN, Multiple Gestation, Pre-gestational DM, Renal Disease, Systemic Lupus or APA Syndrome Yes, if 2 or more: POSITIVE FOR: Age>= 35 yrs and BMI>30; NEGATIVE FOR: Nulliparity, >10yr btwn pregnancies, ethinicty, Mother/Sister w/ Pre-E or Previous IUGR Risk for Post- Hemorrhage Initial: NEGATIVE FOR: Multiple Gestation, Previous PPH, Known Clotting Deficiency, Grand Multiparity or Anticoagulation At Risk?: No Counseled re: Active Management: Yes Date/Initials: KAREN 12/29/2023 Risks Reviewed Risks Reviewed Upon Admission: Yes
[2023-12-29] MEDS: miSOPROStol 25 MCG TAB PO ×2 (18:08→22:14)
[2023-12-29] MEDS: Normal Saline Flush 10 ML SYR IVP (18:09)
[2023-12-29 18:10] LABS: HCT 38.9 % (36.0-46.0); HGB 13.2 g/dL (11.2-15.7); MCH 30.6 pg (27.0-33.0); MCHC 33.9 % (32.0-36.0); MCV 90 fL (80-95); MPV 10.3 fL (8.0-11.0); Platelet Count 285 10^3/uL (130-400); RBC 4.31 10^6/uL (3.93-5.22); RDW 13.3 % (11.7-14.6); WBC 11.69 10^3/uL (4.4-10.8)
[2023-12-30] VITALS (128 sets, daily range): BP systolic 98–127; BP diastolic 56–81; PULSE 0–126; RESP 18–20; TEMP 36.5–36.7; O2SAT 96–97
[2023-12-30] MEDS: miSOPROStol 25 MCG TAB PO ×2 (02:09→06:05)
[2023-12-30] MEDS: Normal Saline Flush 10 ML SYR IVP ×2 (06:00→08:58)
--- NOTE | 2023-12-30 08:21 | W.PM.OBNL1 ---
Date of service: 12/30/23 Time of Service: 08:21 Informed Consent Informed Consent: Induction of Labor Pelvic Exam Dilation: 1.5 Effacement (%): 60 station: -3 Contractions Monitor Mode: External Contraction Frequency(min): 3 Contraction Duration(sec): 60 Intensity: Mild/Moderate Fetus A Heart Rate Baseline: 140 Variability: Moderate (6-25 BPM) Assessment and Plan Assessment and plan (1) Elderly multigravida, currently : Status: Acute Assessment and plan: 41 weeks. Status post misoprostol for cervical ripening. Irregular contractions. Not active labor currently. Will reevaluate for further recommendations. Plan discussed with Dr. Morales. (2) Rh negative state in antepartum period: Status: Acute Objective Abnormal lab results 12/29/23 Range/Units 17:58 WBC 11.69 H (4.4-10.8) 10^3/uL Temp Pulse Resp BP Pulse Ox 97.9 F 113 H 20 127/77 97 12/30/23 07:14 12/30/23 08:12 12/30/23 07:14 12/30/23 07:15 12/30/23 07:15 Laboratory Results WBC 11.69 10^3/uL (4.4-10.8) H 12/29/23 17:58 RBC 4.31 10^6/uL (3.93-5.22) 12/29/23 17:58 Hgb 13.2 g/dL (11.2-15.7) 12/29/23 17:58 Hct 38.9 % (36.0-46.0) 12/29/23 17:58 MCV 90 fL (80-95) 12/29/23 17:58 MCH 30.6 pg (27.0-33.0) 12/29/23 17:58 MCHC 33.9 % (32.0-36.0) 12/29/23 17:58 RDW 13.3 % (11.7-14.6) 12/29/23 17:58 Plt Count 285 10^3/uL (130-400) 12/29/23 17:58 MPV 10.3 fL (8.0-11.0) 12/29/23 17:58 ABO/Rh A Negative 12/29/23 17:58 Antibody Screen NEGATIVE 12/29/23 17:58 Subjective Interval history since last seen: Patient seen and examined this morning. She has received her fourth dose of misoprostol. She has contractions approximately every 3 minutes with some increasing pressure but no intense signs of labor. Baby is moving and active. She has a category 1, reactive heart rate tracing. Results Hemoglobin/Hematocrit: Hgb 13.2 g/dL (11.2-15.7) 12/29/23 17:58 Hct 38.9 % (36.0-46.0) 12/29/23 17:58 Abnormal Lab Findings: Abnormal Labs 12/29/23 17:58 WBC 11.69 H
--- NOTE | 2023-12-30 11:53 | DSE_ITS ---
Date of service: 12/30/23 Time of Service: 11:53 DS: Diagnosis Discharge Diagnosis (1) Elderly multigravida, currently : Status: Acute (2) Rh negative state in antepartum period: Status: Acute Discharge Plan Disposition Patient Disposition: Home Condition: Good Discharge Details Reason For Visit: Induction Admit Date/Time: 12/29/23 17:11 Admit Provider: Bre Morales Attending Provider: Bre Morales [facility] Course: Pt is a 38 yo currently 40w1d EGA by LMP as admitted for cervical ripening yesterday evening. She received several doses of Misoprostol without appreciable cervical change. Pt was noted to have contractions on external tocometer and FHR was category 1. Staffing levels on the unit precluded continuing with the induction of labor since by early this morning there were several patients in active labor. I reviewed the plan of care with the patient and she will return to Center on 01/01/24 for repeat cervical ripening followed by Oxytocin augmentation of labor. Home Meds and New Rx's Prescriptions: No Action loratadine 10 mg tablet,disintegrating 10 mg PO DAILY PRN (Reason: allergy symptoms) Qty: 90 3RF albuterol sulfate 90 mcg/actuation HFA aerosol inhaler 2 puff inhalation Q6H PRN (Reason: shortness of breath or wheezing) Qty: 8.5 0RF (DME) Aerochamber MV Spacer See Rx Instructions .Route Qty: 1 0RF Rx Instructions: As directed calcium carbonate [Calcium 500] 500 mg calcium (1,250 mg) tablet,chewable 500 mg PO DAILY cholecalciferol (vitamin D3) 50 mcg (2,000 unit) capsule 50 mcg PO DAILY aspirin 81 mg tablet,delayed release (DR/EC) 81 mg PO DAILY Qty: 90 4RF Rx Instructions: 1 tab daily alternating with 2 tabs every other day One-A-Day 400 mcg- 25 mg tablet,chewable 1 tab PO DAILY budesonide-formoterol [Symbicort] 160-4.5 mcg/actuation HFA aerosol inhaler 2 inh inhalation BID Qty: 10.2 1RF Rx Instructions: 2 puffs twice a day and may use every 4-6hrs for breakthrough shortness of breath if needed Discharge Instructions Additional Instructions: If you have increased frequency and strength of uterine contractions, rupture of amniotic sac or vaginal bleeding please call the correction officer provider and proceed to the Center. Call the Center prior to arrival at 1800 on 01/01/24 to assess timing of arrival. Activity:: Activity as Tolerated Equipment/Supplies:: No Equipment Needed Diet:: As Tolerated Discharge Orders Discharge Orders: Discharge Order (Routine); Ordered 12/30/23 Ordered By: Crystal Morales DS: Summary Time Spent with Patient providing and/or coordinating discharge services: Less than 30 minutes Status at Discharge Functional status at discharge: independent ambulation Overall status at discharge: patient is back to baseline Mental Status: mental status grossly normal Speech and Movement: speech and movement normal Mood: congruent mood Affect: normal affect Quality:SDOH Health Related Social Needs: No Data to Display Exam Narrative Exam Narrative: Pt's SVE: Closed, soft, posterior, 25% effaced. -3 VTX. Const General: no acute distress Nutritional Appearance: well nourished Orientation: alert, awake and oriented x3 Resp Effort & Inspection: normal respiratory effort OB/External & Speculum: external exam normal Extrem General: normal to inspection Psych Appearance: grossly normal Mental Status: mental status grossly normal Speech and Movement: speech and movement normal Mood: congruent mood Affect: normal affect Attitude: cooperative Thought Process: normal Thought Content: normal Insight: insight good Judgment: judgment good DS: Data Vitals/I&O Vitals and I&O: Vital Signs Temperature 97.7 F 12/30/23 09:01 Temperature Source Oral 12/30/23 09:01 Pulse 97 H 12/30/23 09:01 Pulse Rhythm Regular 12/30/23 07:15 Respiratory Rate 18 12/30/23 09:01 Blood Pressure 123/81 12/30/23 09:01 Blood Pressure Mean 95 12/30/23 09:01 Pulse Oximetry 97 12/30/23 09:01 Pain Level 0 12/30/23 09:01 Comment NOVII PATCH APPLIED 12/29/23 21:51 Intake & Output 12/29/23 12/29/23 12/30/23 11:59 23:59 11:59 Intake Total 900 / 900 Output Total 600 / 600 1800 / 1800 Balance 300 / 300 -1800 / -1800 Weight 306 lb Intake: Oral 900 / 900 Output: Urine 600 / 600 1800 / 1800 Other: Urine Color Yellow Urine Appearance Clear Urine Odor None Voiding Methods Toilet Data Completed and Pending Labs on day of discharge: Labs from last 24 hours 12/29/23 17:58 WBC 11.69 H RBC 4.31 Hgb 13.2 Hct 38.9 MCV 90 MCH 30.6 MCHC 33.9 RDW 13.3 Plt Count 285 MPV 10.3 ABO/Rh A Negative Antibody Screen NEGATIVE PFSH All Active Problems (Updated 06/14/23 @ 12:54 by Yisel Deshpande CNM) Rh negative state in antepartum period (Acute) Elderly multigravida, currently (Acute) Situational anxiety (Chronic) (Acute) Chronic cough (Chronic) Tachycardia (Chronic) 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 Father Hyperlipidemia Sister No problems noted. Brother No problems noted. Son No problems noted. Maternal Grandfather , 78 Diabetes Stomach cancer Prostate cancer Lung cancer Paternal Grandfather , 79 Colon cancer Maternal Grandmother Diabetes Uterine cancer Paternal Grandmother Hyperlipidemia Hypertension Heart disease Social History Smoking/Tobacco Use Status: Never Tobacco: How many years used: 0 Second Hand Exposure: Yes Smoking risk assessment performed?: Yes Alcohol Intake: current Alcohol Intake frequency: holidays/special occasions only Alcohol type: hard liquor Drug use: Never Substance use type: does not use Household members: spouse, family and children Housing: house Communication Needs: None Do you need help understanding health information?: Never Pets and animals: Yes Pets and animals: dog(s) Sexually active: Yes Do you think of yourself as: straight/heterosexual Current gender identity: female What is your relationship status?: How often do you talk on the phone with friends or family?: twice per week How often do you get together with friends or relatives?: three or more times per week How often do you attend adventist or cheondoism services?: 4 or more times per year Do you belong to any clubs or organized social groups?: decline to answer Panel score (0-1 are the most socially isolated patients): 3 What type of physical activity do you participate in: walking Duration: 30-45 minutes/day Frequency: daily Sherrie/Baptism: Restorationism Special sherrie needs: No Seatbelt use: always Helmet use: Yes 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 Date GA/Weeks # Preg Succ Route Wgt Sex Labor L[facility] No Yes vaginal 8 lb 10 oz Male long induction regiona l [facility] Delivery Date: 05/17/19 Last Updated by: Thalia Callejas IOL for postdates, long 2nd stage, episiotomy Kemar Time Spent with Patient Time Spent with Patient: <45 minutes Time was spent: preparing to see the patient(eg.review tests), obtaining and/or reviewing separately otained hiistory, referring, communicating with other health director of managed care, counseling the patient and care coordination
== END 2023-12-30 12:08 | disposition home or self-care (01) | DRG 833 ==
PROVIDERS: Admitting Provider Obstetrics & Gynecology; PCP Nurse Practitioner Family; Visit Provider Obstetrics & Gynecology
DX: O26.893 Other specified pregnancy related conditions, third trimester (principal); O09.523 Supervision of elderly multigravida, third trimester; Z67.91 Unspecified blood type, Rh negative; Z3A.40 40 weeks gestation of pregnancy; E78.5 Hyperlipidemia, unspecified; O99.213 Obesity complicating pregnancy, third trimester; E66.9 Obesity, unspecified; O99.613 Diseases of the digestive system complicating pregnancy, third trimester; K90.0 Celiac disease
CPT/HCPCS: 36415; 85027; 86850; 86900; 86901; J3490

== ENCOUNTER 2024-01-02 17:59 | Inpatient (IN) | payer OTHER, SELFPAY ==
[2024-01-02 18:08] VITALS: BP 149/78; PULSE 103; RESP 17; TEMP 36.8; O2SAT 99
[2024-01-02 18:19] VITALS: BP 140/79; PULSE 92; TEMP 36.8
[2024-01-02 18:31] LABS: HCT 36.6 % (36.0-46.0); HGB 12.6 g/dL (11.2-15.7); MCH 30.6 pg (27.0-33.0); MCHC 34.4 % (32.0-36.0); MCV 89 fL (80-95); MPV 10.1 fL (8.0-11.0); Platelet Count 257 10^3/uL (130-400); RBC 4.12 10^6/uL (3.93-5.22); RDW 13.3 % (11.7-14.6); RDW-SD 42.8 fL; WBC 10.32 10^3/uL (4.4-10.8)
[2024-01-02] MEDS: miSOPROStol 25 MCG TAB PO ×2 (18:42→22:25)
--- NOTE | 2024-01-02 18:43 | W.PM.OBHPL1 ---
Date of service: 01/02/24 Time of Service: 18:43 Assessment and Plan Assessment and plan (1) Rh negative state in antepartum period: Status: Acute (2) Elderly multigravida, currently : Status: Acute (3) Encounter for induction of labor: Status: Acute Assessment and plan: Pt declines chaudhary balloon for cervical ripening. Will proceed with Misoprostol. Monitor during night. OB-HPI Labor/Delivery History of Present Illness Reason for Visit: IUP @ 40 w4d Chief Complaint: Scheduled Induction of Labor Indication for Induction: Other (advanced maternal age). AKOSUA Calculator Estimated Delivery Date Method Current WG Current Estimate 12/29/23 LMP (Certain) 40w 4d Other Estimates 12/29/23 Ultrasound #1 40w 4d Comments: 38 yo female who presents for labor induction. She had previously been admitted to on 12/29/23 for cervical ripening. No appreciable change in SVE overnight and she was discharged to home to return this evening. Previous was a vaginal after 3-day induction at 42 weeks. Previous weighed [id number]. She wishes to avoid a long induction process. Uncomplicated course. cell free DNA was low risk. Compliant with daily baby aspirin. She is Rh- and received RhoGAM. History of Present Expected Delivery Route/Plan - MD FOB/ - Taye Madden (2nd child together) Specific Issues/Plan 1. BMI >40, early glucola 145; 3 hr GTT F91, 1h 183, 2h 144, 3h 62.m 10/06/23 1hr Glucola 99. [place]. [place] [facility] [place] [place]FM [place] & level 2 u/s - US at DI-normal anatomy - cfDNA - low risk , CF/SMA declined - Low dose ASA 81 mg/162 mg alternating to decrease pre-e risk (BMI/AMA) 3. FOB has intracranial HTN, followed by neurology 4. Pt with undx'ed Celiac's, on gluten-free diet x10 yrs 5. RH neg, Rhogam at 28 weeks - 10/06/23. 6. Nipple pain at night - will try wearing a bra at night Screen negative on 5P's, PHQ9 score is 0 Assessment: History Reviewed & Current Informed Consent Informed Consent: Induction of Labor Review of Systems Narrative: Pt reports some light vaginal bleeding after she was discharged to home on 12/30/23. Mild uterine contractions. 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 Father Hyperlipidemia Sister No problems noted. Brother No problems noted. Son No problems noted. Maternal Grandfather , 78 Diabetes Stomach cancer Prostate cancer Lung cancer Paternal Grandfather , 79 Colon cancer Maternal Grandmother Diabetes Uterine cancer Paternal Grandmother Hyperlipidemia Hypertension Heart disease Social History Smoking/Tobacco Use Status: Never Tobacco: How many years used: 0 Second Hand Exposure: Yes Smoking risk assessment performed?: Yes Alcohol Intake: current Alcohol Intake frequency: holidays/special occasions only Alcohol type: hard liquor Drug use: Never Substance use type: does not use Household members: spouse, family and children Housing: house Communication Needs: None Do you need help understanding health information?: Never Pets and animals: Yes Pets and animals: dog(s) Sexually active: Yes Do you think of yourself as: straight/heterosexual Current gender identity: female What is your relationship status?: How often do you talk on the phone with friends or family?: twice per week How often do you get together with friends or relatives?: three or more times per week How often do you attend episcopal or episcopal services?: 4 or more times per year Do you belong to any clubs or organized social groups?: decline to answer Panel score (0-1 are the most socially isolated patients): 3 What type of physical activity do you participate in: walking Duration: 30-45 minutes/day Frequency: daily Sherrie/Restoration: Quaker Special sherrie needs: No Seatbelt use: always Helmet use: Yes Drive intox 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 Date GA/Weeks # Preg Succ Route Wgt Sex Labor Lgth Anesthesia Location Prov Complic 05/17/19 42 No Yes vaginal 8 lb 10 oz Male long induction regional [facility] Delivery Date: 05/17/19 Last Updated by: Thalia Callejas IOL for postdates, long 2nd stage, episiotomy Kemar Meds Allergies and Home Medications Allergies Allergy/AdvReac Type Severity Reaction Status Date / Time amoxicillin (Amoxicillin) Allergy Severe hives Unverified 12/27/23 14:41 azithromycin Allergy Severe Hives Unverified 12/27/23 14:41 Penicillins Allergy Severe Hives Unverified 12/27/23 14:41 shellfish derived Allergy Severe hives Unverified 12/27/23 14:41 gluten AdvReac Severe Diarrhea Unverified 12/27/23 14:41 Home Medications ?Medication ?Instructions ?Recorded ?Confirmed ?Type loratadine 10 mg disintegrating 10 mg PO DAILY PRN allergy 02/17/22 01/02/24 Rx tablet symptoms #90 tabs albuterol sulfate 90 mcg/actuation 2 puff inhalation Q6H PRN 03/26/23 01/02/24 Rx aerosol inhaler shortness of breath or wheezing #8.5 grams inhalational spacing device #1 ea 03/26/23 01/02/24 Rx (Aerochamber MV spacer) budesonide-formoterol HFA 160 2 inh inhalation BID #10.2 grams 06/06/23 01/02/24 Rx mcg-4.5 mcg/actuation aerosol inhaler (Symbicort) vitamin no.167-folic acid 1 tab PO DAILY 06/06/23 01/02/24 History 400 mcg-dha 25 mg chewable tablet (One-A-Day ) aspirin 81 mg tablet,delayed 81 mg PO DAILY #90 tabs 02/13/24 09/02/24 Rx release calcium carbonate (Calcium 500) 500 mg PO DAILY 06/14/23 01/02/24 History cholecalciferol (vitamin D3) 50 50 mcg PO DAILY 06/14/23 01/02/24 History mcg (2,000 unit) capsule Exam Physical Exam Vital signs: Temp Pulse Resp BP Pulse Ox 98.2 F 92 H 17 140/79 99 01/02/24 18:08 01/02/24 18:19 01/02/24 18:08 01/02/24 18:19 01/02/24 18:08 Vital Signs Reviewed: Yes Constitutional Constitutional: no acute distress Detailed Labor and Delivery Exam Dilation: 1 Effacement (%): 25 station: -3 Cervix position: mid Consistency: medium Faustin Score: Cervical Points Exam 0 1 2 3 Dilation Closed 1-2cm 3-4 cm 5-6cm Effacement 0-30% 40-50% 60-70% 80% Consistency Firm Medium Soft Station -3 -2 -1,0 +1,+2 Position Posterior Mid Anterior FAUSTIN Score(Cervical Ripeness Score): 3 Amniotic Membrane Status: Intact Monitor Mode: External Contraction Frequency(min): occasionally Contraction Duration(sec): 50sec Contraction Intensity: Mild Fetus A Heart Rate Baseline: 130 Monitor Accelerations: 15 X 15 Monitor Decelerations: None Variability: Moderate (6-25 BPM) Presentation: Cephalic Categories: Category I Est. Weight: 7 lb 11.459 oz HEENT Exam HEENT Exam: Normal Neck Exam Neck Exam: Normal Chest/Brest/Axilla Exam Chest Exam: Not Done Breast Exam Breast Exam: Not Done Respiratory Exam Respiratory Exam: Normal Cardiovascular Exam Cardiovascular Exam: Normal Abdominal Exam Abdominal Exam: Normal (gravid. no focal tenderness) Rectal Exam Rectal Exam: Not Done Exam Exam: Normal (as above) Back/Spine/Pelvis Exam Back Exam: Not Done Skin Exam Skin Exam: Normal Neurological Exam Neurological Exam: Normal Psychiatric Exam Psychiatric Exam: Normal Risk Assessment Risk for Shoulder Dystocia Historical/Initial OB: POSITIVE FOR: Pre- BMI>30; NEGATIVE FOR: Pelvic Abnormality, Previous Shoulder Dystocia or Previous Macrosomia Delivery Plan @ 40 wks: Labor induction. Risk for Pre-Eclampsia Date Initiated/Initials: to start @ 12 wks. JK Yes, if one or more: NEGATIVE FOR: Hx Pre-E/Gest HTN, Chronic HTN, Multiple Gestation, Pre-gestational DM, Renal Disease, Systemic Lupus or APA Syndrome Yes, if 2 or more: POSITIVE FOR: Age>= 35 yrs and BMI>30; NEGATIVE FOR: Nulliparity, >10yr btwn pregnancies, ethinicty, Mother/Sister w/ Pre-E or Previous IUGR Risk for Post- Hemorrhage Initial: NEGATIVE FOR: Multiple Gestation, Previous PPH, Known Clotting Deficiency, Grand Multiparity or Anticoagulation Counseled re: Active Management: Yes Date/Initials: KAREN 12/29/2023 Risks Reviewed Risks Reviewed Upon Admission: Yes
[2024-01-02 19:28] VITALS: BP 134/77; PULSE 88; TEMP 36.8
[2024-01-02 22:02] VITALS: BP 138/81; PULSE 84; TEMP 36.4
[2024-01-03] VITALS (35 sets, daily range): BP systolic 98–164; BP diastolic 57–91; PULSE 59–171; RESP 16–18; TEMP 36.6–37.7; O2SAT 95–100; BMI 43.9
[2024-01-03] MEDS: miSOPROStol 25 MCG TAB PO ×2 (02:30→06:40)
[2024-01-03] MEDS: Lactated Ringers 1,000 ML 200 ML IV (11:05)
--- NOTE | 2024-01-03 11:32 | W.PM.OBNL1 ---
Date of service: 01/03/24 Time of Service: 11:32 Informed Consent Informed Consent: Induction of Labor Pelvic Exam Dilation: 1 Effacement (%): 20 station: -3 Contractions Contraction Frequency(min): Irregular Fetus A Heart Rate Baseline: 140 Variability: Moderate (6-25 BPM) Categories: Category I Assessment and Plan Assessment and plan (1) Elderly multigravida, currently : Status: Acute Assessment and plan: Continue labor induction. Cervical ripening last night. Will begin Pitocin mentation today. If unsuccessful in achieving labor, Cervidil tonight. All questions answered. Epidural when appropriate. (2) : Status: Acute (3) Encounter for induction of labor: Status: Acute Objective Temp Pulse Resp BP Pulse Ox 97.9 F 96 H 17 103/68 99 01/03/24 06:39 01/03/24 11:04 01/02/24 18:08 01/03/24 11:04 01/02/24 18:08 Laboratory Results WBC 10.32 10^3/uL (4.4-10.8) 01/02/24 18:20 RBC 4.12 10^6/uL (3.93-5.22) 01/02/24 18:20 Hgb 12.6 g/dL (11.2-15.7) 01/02/24 18:20 Hct 36.6 % (36.0-46.0) 01/02/24 18:20 MCV 89 fL (80-95) 01/02/24 18:20 MCH 30.6 pg (27.0-33.0) 01/02/24 18:20 MCHC 34.4 % (32.0-36.0) 01/02/24 18:20 RDW 13.3 % (11.7-14.6) 01/02/24 18:20 Plt Count 257 10^3/uL (130-400) 01/02/24 18:20 MPV 10.1 fL (8.0-11.0) 01/02/24 18:20 ABO/Rh A Negative 01/02/24 18:20 Antibody Screen NEGATIVE 01/02/24 18:20 Subjective Interval history since last seen: Patient seen and examined this afternoon. Overall doing well. Feeling occasional irregular contractions with some pressure. Otherwise stable. She has received 4 doses of misoprostol intravaginally. We had a conversation regarding continued labor induction with either Pitocin, or cervical ripening with Cervidil. At this point, we will begin labor induction with oxytocin. She understands the risks, benefits, and alternatives. She is desirous of an epidural when the time is appropriate. She is also open to artificial rupture of membranes when appropriate as well. She also understands that if failed to get into labor today, we could perform more cervical ripening with Cervidil over the night. Results Hemoglobin/Hematocrit: Hgb 12.6 g/dL (11.2-15.7) 01/02/24 18:20 Hct 36.6 % (36.0-46.0) 01/02/24 18:20
[2024-01-03] MEDS: Oxytocin/Normal Saline 30 UNIT/500 ML BAG 2 UNITS IV (12:15)
[2024-01-03 12:25] LABS: HCT 37.9 % (36.0-46.0); MCHC 34.3 % (32.0-36.0); MCV 90 fL (80-95); MPV 9.9 fL (8.0-11.0); Platelet Count 245 10^3/uL (130-400); RDW 13.4 % (11.7-14.6); RDW-SD 43.9 fL; WBC 9.87 10^3/uL (4.4-10.8)
[2024-01-03] MEDS: Normal Saline Flush 10 ML SYR IVP (12:47)
--- NOTE | 2024-01-03 12:48 | ANES.PREOP_ITS ---
General Info Date of Service Date Performed: 01/03/24 Height: 5 ft 10 in Weight: 138.799 kg Body Mass Index (BMI): 43.9 Meds Allergies and Home Medications Allergies Allergy/AdvReac Type Severity Reaction Status Date / Time amoxicillin (Amoxicillin) Allergy Severe hives Unverified 12/27/23 14:41 azithromycin Allergy Severe Hives Unverified 12/27/23 14:41 Penicillins Allergy Severe Hives Unverified 12/27/23 14:41 shellfish derived Allergy Severe hives Unverified 12/27/23 14:41 gluten AdvReac Severe Diarrhea Unverified 12/27/23 14:41 Home Medication ?Medication ?Instructions ?Recorded loratadine 10 mg disintegrating 10 mg PO DAILY PRN allergy 02/17/22 tablet symptoms #90 tabs albuterol sulfate 90 mcg/actuation 2 puff inhalation Q6H PRN 03/26/23 aerosol inhaler shortness of breath or wheezing #8.5 grams inhalational spacing device #1 ea 03/26/23 (Aerochamber MV spacer) budesonide-formoterol HFA 160 2 inh inhalation BID #10.2 grams 06/06/23 mcg-4.5 mcg/actuation aerosol inhaler (Symbicort) vitamin no.167-folic acid 1 tab PO DAILY 06/06/23 400 mcg-dha 25 mg chewable tablet (One-A-Day ) aspirin 81 mg tablet,delayed 81 mg PO DAILY #90 tabs 06/14/23 release calcium carbonate (Calcium 500) 500 mg PO DAILY 06/14/23 cholecalciferol (vitamin D3) 50 50 mcg PO DAILY 06/14/23 mcg (2,000 unit) capsule Current Visit Medications: Current Medications Generic Name Dose Route Start Last Admin Trade Name Freq PRN Reason Stop Dose Admin Albuterol Sulfate 2 puff 01/02/24 17:57 Albuterol Hfa 8 Gm 60 Puff Inh IH Q6H PRN PRN shortness of breath or wheezing Budesonide/Formoterol Fumarate 2 puff 01/02/24 20:00 01/02/24 22:07 Budesonide/Formoterol 160/4.5 6 Gm 60 Puff Inh IH Not Given BID TABITHA Device 1 each 01/02/24 18:00 Inhaler, Assist Device MC DIRECTED TABITHA Ringer's Solution 1,000 mls @ 200 mls/hr 01/02/24 18:00 01/03/24 11:05 IV 200 mls/hr INFUSION TABITHA Administration Ringer's Solution 1,000 mls @ 125 mls/hr 01/03/24 11:45 IV INFUSION TABITHA Oxytocin/Sodium Chloride 30 unit in 500 mls @ 2 mls/hr 01/03/24 11:45 01/03/24 12:46 Pitocin/Normal Saline IV 4 milliunits/min INFUSION TABITHA 4 mls/hr Titration Protocol 2 MILLIUNITS/MIN IV Miscellaneous Supplies 1 each 01/02/24 18:00 Iv Access IV DIRECTED TABITHA Loratadine 10 mg 01/03/24 08:07 Loratidine 10 Mg Tab PO DAILY PRN PRN allergy symptoms Misoprostol 25 mcg 01/02/24 18:00 01/03/24 06:40 Misoprostol 25 Mcg Tab PO 25 mcg Q4H TABITHA Administration Sodium Chloride 0 ml 01/02/24 17:58 Normal Saline Flush 10 Ml Syr IVP PRN PRN Sodium Chloride 0 ml 01/02/24 20:00 01/03/24 12:47 Normal Saline Flush 10 Ml Syr IVP 10 ml BID TABITHA Administration Sodium Chloride 0 ml 01/02/24 17:58 Normal Saline 10 Ml Vial IJ DIRECTED PRN Terbutaline Sulfate 0.25 mg 01/02/24 17:58 Terbutaline 1 Mg/Ml Vial SC PRN PRN PFSH Active Problems Active Problems: Problem Status Onset Code Encounter for induction of labor Acute Z34.90 Rh negative state in antepartum period Acute O26.899, Z67.91 Elderly multigravida, currently Acute O09.529 Situational anxiety Chronic F41.8 Acute Z34.90 Chronic cough Chronic R05.3 Tachycardia Chronic R00.0 Hyperlipidemia Chronic E78.5 Celiac disease Chronic K90.0 Allergic rhinitis Chronic J30.9 Pelvic floor weakness Chronic N81.89 Obesity Chronic E66.9 Medical History Medical History Infectious 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 Date GA/Weeks # Preg Succ Route Wgt Sex Labor Lgth Anesth esia Location Prov [facility] 05/17/19 42 No Yes vaginal 3912.234 g Male long induction regiona l [facility] Delivery Date: 05/17/19 Last Updated by: Thalia Callejas IOL for postdates, long 2nd stage, episiotomy Kemar Vital Signs and Lab Results Vital Signs Most Recent Vital Signs in EMR: Most Recent Vital Signs Temp Pulse Resp BP Pulse Ox 36.6 C 96 H 17 103/68 99 01/03/24 06:39 01/03/24 11:04 01/02/24 18:08 01/03/24 11:04 01/02/24 18:08 Lab Results 01/03/24 12:15 Blood Type / Crossmatch: 2 Antibody Screen NEGATIVE 01/02/24 Complete Blood Count: 2 White Blood Count 9.87 10^3/uL (4.4-10.8) 01/03/24 12:15 Red Blood Count 4.20 10^6/uL (3.93-5.22) 01/03/24 12:15 Hemoglobin 13.0 g/dL (11.2-15.7) 01/03/24 12:15 Hematocrit 37.9 % (36.0-46.0) 01/03/24 12:15 Platelet Count 245 10^3/uL (130-400) 01/03/24 12:15 Complete Metabolic Panel: 2 No Data to Display Liver Function Panel: 2 No Data to Display Coagulation Panel: 2 No Data to Display Cardiac Panel: 2 No Data to Display Arterial Blood Gas: 2 No Data to Display Venous Blood Gas: 2 No Data to Display Pancreas Panel: 2 No Data to Display Thyroid Panel: 2 No Data to Display Infectious Disease: 2 No Data to Display Blood Cultures: 2 No Data to Display Toxicology Panel: 2 No Data to Display Panel: 2 No Data to Display Anesthesia Assessment and Plan Anesthesia History Personal History: No History of Anesthesia Complications Family History: No Family History of Anesthesia Complications Exercise Tolerance Exercise Tolerance: Metabolic Equivalents>4 Pertinent Negatives Pertinent Negatives: No Symptoms of GERD Cardiac & Pulmonary Exam Cardiac Exam: Normal S1/S2 Heart Sounds Pulmonary Exam: Clear Bilateral Breath Sounds Implantable Cardiac Device Does patient have a Pacemaker or an ICD?: No Airway Exam Known Difficult Airway: No Mallampati Class: 2 Mouth Opening: Normal (> 3cm) Thyromental Distance: Greater than 3 cm Neck Range of Motion: Full ROM Neck Circumference: Normal Teeth Condition: Normal Dentition ASA Classification ASA Score: ASA 2 Emergency Case?: No NPO Status NPO Status: NPO Clears >2 hours, Solids >8 hours Status Status: Confirmed Anesthesia Plan Resuscitation Status: Full Code Anesthesia Technique: Labor Epidural Airway Planned: Natural Airway Monitors Used: Standard Monitors
--- NOTE | 2024-01-03 17:06 | W.PM.OBNL1 ---
Date of service: 01/03/24 Time of Service: 17:06 Informed Consent Informed Consent: Induction of Labor Pelvic Exam Dilation: 2 Effacement (%): 50 station: -2 Contractions Contraction Frequency(min): 3 Contraction Duration(sec): 60 Intensity: Strong Fetus A Monitor: External (US) Heart Rate Baseline: 150 Presentation: Vertex Variability: Moderate (6-25 BPM) Categories: Category I Assessment and Plan Assessment and plan (1) Elderly multigravida, currently : Status: Acute Assessment and plan: Active labor. Spontaneous rupture membranes for clear fluid. Patient uncomfortable, requesting pain control. Anesthesia notified for epidural placement. Expectant management. Anticipate vaginal . (2) Encounter for induction of labor: Status: Acute Objective Temp Pulse Resp BP Pulse Ox 97.9 F 73 17 131/76 99 01/03/24 06:39 01/03/24 16:00 01/02/24 18:08 01/03/24 16:00 01/02/24 18:08 Laboratory Results WBC 9.87 10^3/uL (4.4-10.8) 01/03/24 12:15 RBC 4.20 10^6/uL (3.93-5.22) 01/03/24 12:15 Hgb 13.0 g/dL (11.2-15.7) 01/03/24 12:15 Hct 37.9 % (36.0-46.0) 01/03/24 12:15 MCV 90 fL (80-95) 01/03/24 12:15 MCH 31.0 pg (27.0-33.0) 01/03/24 12:15 MCHC 34.3 % (32.0-36.0) 01/03/24 12:15 RDW 13.4 % (11.7-14.6) 01/03/24 12:15 Plt Count 245 10^3/uL (130-400) 01/03/24 12:15 MPV 9.9 fL (8.0-11.0) 01/03/24 12:15 ABO/Rh A Negative 01/02/24 18:20 Antibody Screen NEGATIVE 01/02/24 18:20 Subjective Interval history since last seen: Patient had spontaneous rupture of membranes for blood-tinged fluid at approximately 4 PM. Her contractions are far more intense and regular. Cervix is 2, 50%, -3 station with the vertex applied against the cervix. She is requesting pain control with an epidural. All questions answered. Results Hemoglobin/Hematocrit: Hgb 13.0 g/dL (11.2-15.7) 01/03/24 12:15 Hct 37.9 % (36.0-46.0) 01/03/24 12:15
--- NOTE | 2024-01-03 18:23 | W.ANESNEU ---
Epidural/Spinal Catheter Date Performed: 01/03/24 Procedure Start: 17:36 Procedure Stop: 18:10 Requesting Provider: Bre Morales Procedure Location: Obstetrics Reason Performed: Labor Epidural Standard Monitors Applied: ECG, Blood Pressure, SpO2, ETCO2 and See EMR for corresponding vital signs Patient Position: Sitting Sedation Given (Indicate Dose Given): No Sedation given Patient Mental Status: Awake Sterility: Hand Hygiene, Surgical Cap, Surgical Mask, Sterile Gloves, Sterile Drape/Sheet, Eye Protection and Chlorhexidine Procedure Location: L3-L4 Interspace Epidural Needle: Tuohy 18 Gauge Needle Length: 3.5 Inch Needle Approach: Midline Epidural Procedure: Skin Prepped, Sterile Drape Placed, 1% Lidocaine to skin and subcutaneous tissue with 25G needle, Tuohy Needle placed, UGO to Saline Used, Epidural Catheter Placed, Negative Heme and Negative CSF Flow Catheter Placed?: Catheter Placed Test Dose (Indicate Dose Given): 3ml 1.5% Lidocaine with 1:200K Epinephrine Given and Negative Test Dose Loss of Resistance Depth (cm): 6 Catheter depth at skin (cm): 13 Dressing: [place] Dressing Placed, Tegaderm Applied, Chlorhexidine Dressing and Mastisol Used Epidural Provider Bolus (Indicate Dose Given): Total Ropivacaine 0.1% with Fentanyl 2mcg/ml Given from pump. (ml) Dose:: 10cc Additives (Indicate Dose Given ): None Infusion Medication: Medication Infusion Began Medication Infusion: Ropivacaine 0.1% with Fentanyl 2mcg/ml Maintenance Infusion Rate (ml/hour): 12 PCEA Bolus Dose (ml): 5 Block Level: T7 Paresthesia: None Ultrasound: Used to toña site Number of Attempts (See previous attempts in note section): 1 Procedure Tolerated: No Complications and Patient tolerated well Procedure Outcome: Successful Performed By: Irvin Rosario
[2024-01-03] MEDS: FentaNYL/ROPIvacaine 2 mcg/ml and 0.1% 200 ML CADD Cassette EP (19:13)
--- NOTE | 2024-01-03 19:37 | W.OBDELIVERY ---
Date of service: 01/03/24 Time of Service: 19:37 OB Labor/ Delivery Information Baby A Delivery Delivery Method: Spontaneaous Presentation: Vertex Vertex Position: Right Occipital Anterior Cord Description-Baby A: 3 Vessels, Nuchal Cord (x 3), Reduced and Other (True knot) Amniotic Fluid: Clear Estimated Blood Loss: 500 Delivery Outcome: Liveborn Infant Complications: none Transferred: Remains with Mother Note: Patient had spontaneous rupture of membranes followed by increasing painful contractions. She had requested epidural which was placed. With good effect. Patient had a sudden urge to push post placement of her epidural. She was checked and noted to be completely dilated with a fetus in the vertex, occiput anterior position, +2 station with heart tones in the 140s. Patient had a strong urge to push. After approximately 25 minutes of maternal effort, vertex delivered. There was noted to be loose nuchal cord x 3 which was reduced and the shoulders subsequently followed with ease. There was noted also to be a body cord, and a true knot within the cord. Three-vessel cord was noted and clamped x 2. Cord was cut after appropriate delayed clamping. Both cord blood gases and cord blood sampling were obtained. The placenta delivered spontaneously and was noted to be intact. She received Pitocin for uterine tonicity. There was noted to be a fairly substantial laceration of the posterior fourchette, second-degree which was repaired with 3-0 Vicryl suture in a running locked fashion. There is a small first-degree extension to the right labia minora which was also repaired with 3-0 Vicryl in a subcuticular fashion. After hemostasis was achieved, uterus was noted to be firm. A qualitative blood loss performed and noted to be 500 mL. Baby had Apgars of 5 and 9. Both mom and baby are in stable condition bonding well after delivery. Providers Doctor: Bre Morales Orthopedic Physician Assistant: Irvin Rosario Nurse: Betty Ibrahim Nurse: Shruthi Ann Other: Brittanie Huber Labor/Delivery Information Number of Babies in Womb: 1 Steroids Given: None Reason Steroids Not Administered: N/A Group Beta Strep: Negative Antibiotics Administered: No Stages of Labor Onset of Labor Date: 01/03/24 Onset of Labor Time: 16:09 Complete Dilatation Date: 01/03/24 Complete Dilatation Time: 18:15 Labor - Stage 1 Duration: 2 hours and 6 minutes ROM Baby A: 01/03/24 ROM Baby A: 16:09 ROM Total Time- Baby A: [id number] Delivery Date-Baby A: 01/03/24 Delivery Time-Baby A: 18:32 Labor Stage 2 Duration: 17 minutes Placenta Delivery Date-Baby A: 01/03/24 Placenta Delivery Time-Baby A: 18:39 Labor-Stage 3 Duration: 7 minutes Total Length of Labor-Baby A: 2 hours and 23 minutes Placenta Status: Delivered Baby A Infant Gender: Male Gestational Status: Term (39-41.6 wks) Gestational Age in Weeks/Days: 40 Weeks and 6 Days Score-1 Minute Interval(Baby A) Heart Rate-1 minute: 100 BPM or Greater Respiratory Effort- 1 minute: Slow Respiration/Weak Cry Muscle Tone-1 minute: Minimal Flexion/Extension Reflex Response-1 minute: Minimal Response Color-1 minute: Pallor or Cyanosis Total Score-1 minute: 5 Score-5 Minute Interval(Baby A) Heart Rate- 5 minute: 100 BPM or Greater Respiratory Effort-5 minute: Slow Respiration/Weak Cry Muscle Tone-5 minute: Active Movement Reflex Response-5 minute: Prompt Response Color-5 minute: Bluish Hands or Feet Total Score- 5 minute: 8
[2024-01-03] MEDS: Ibuprofen 600 MG TAB PO (20:14)
[2024-01-03] MEDS: Docusate Sodium 100 MG CAP PO (20:15)
[2024-01-03] MEDS: Acetaminophen 325 MG TAB 650 MG PO (20:15)
[2024-01-03] MEDS: Dibucaine 1% 28 GM TUBE (22:50)
[2024-01-03] MEDS: Hamamelis Leaf/Glycerin 100 EACH BOX PR (22:51)
[2024-01-04] MEDS: Acetaminophen 325 MG TAB 650 MG PO ×5 (01:12→22:40)
[2024-01-04] MEDS: Ibuprofen 600 MG TAB PO ×4 (01:56→22:40)
[2024-01-04 06:42] LABS: HCT 32.5 % (36.0-46.0); HGB 11.2 g/dL (11.2-15.7); MCH 31.2 pg (27.0-33.0); MCHC 34.5 % (32.0-36.0); MCV 91 fL (80-95); MPV 10.3 fL (8.0-11.0); Platelet Count 215 10^3/uL (130-400); RBC 3.59 10^6/uL (3.93-5.22); RDW 13.6 % (11.7-14.6); RDW-SD 44.8 fL; WBC 17.53 10^3/uL (4.4-10.8)
[2024-01-04 08:10] VITALS: BP 114/78; PULSE 112; RESP 20; TEMP 36.6; O2SAT 96
[2024-01-04] MEDS: Docusate Sodium 100 MG CAP PO (10:08)
--- NOTE | 2024-01-04 10:49 | W.PM.OBPNV1 ---
Date of service: 01/04/24 Time of Service: 10:50 Assessment and Plan Assessment and plan (1) (normal spontaneous vaginal delivery): Status: Acute Assessment and plan: day #1 status postnormal spontaneous vaginal delivery. Doing well. No issues or concerns at this point. She did have mild tachycardia with a normal hemoglobin. Patient is working on breast-feeding. Exam Physical Exam Vital signs: Temp Pulse Resp BP Pulse Ox 97.9 F 112 H 20 114/78 96 01/04/24 08:59 01/04/24 08:59 01/04/24 08:59 01/04/24 08:59 01/04/24 08:59 Vital Signs Reviewed: Yes Notable Details: Mild tachycardia, asymptomatic Constitutional Comments: Patient seen. Doing well. Working on breast-feeding. HEENT Exam HEENT Exam: Normal Neck Exam Neck Exam: Normal Respiratory Exam Respiratory Exam: Normal Cardiovascular Exam Cardiovascular Exam: Normal Abdominal Exam Comments: Soft, nontender Fundal Exam Fundus: Below Umbilicus and Firm Extremities Exam Extremity Exam: Normal and Edema Neurological Exam Neurological Exam: Normal Psychiatric Exam Psychiatric Exam: Normal Results Hemoglobin/Hematocrit: Hgb 11.2 g/dL (11.2-15.7) 01/04/24 06:30 Hct 32.5 % (36.0-46.0) L 01/04/24 06:30 Abnormal Lab Findings: Abnormal Labs 01/04/24 06:30 WBC 17.53 H RBC 3.59 L Hct 32.5 L
--- NOTE | 2024-01-04 10:51 | W.ANESPOSTOP ---
Postoperative Evaluation Date, Time and Location Date Performed: 01/04/24 Time Performed: 10:48 Patient Location: Obstetrics Vital Signs Most Recent Imported Vital Signs: Most Recent Vital Signs Temp Pulse Resp BP Pulse Ox 36.6 C 112 H 20 114/78 96 01/04/24 08:59 01/04/24 08:59 01/04/24 08:59 01/04/24 08:59 01/04/24 08:59 Pain Score Most Recent Pain Score: Most Recent Pain Score Pain Level [Abdomen] 1 01/04/24 08:59 Pain Level 2 01/04/24 10:08 Assessment Mental Status: Awake (Alert & Oriented to Patient Baseline) Airway and Respiratory Function: Patent airway with normal (patient baseline) respiratory exam Cardiovascular Function: Hemodynamically Stable Hydration Status: Adequately Hydrated Nausea & Vomiting: No Nausea or Vomiting Pain: Pain is tolerable per patient Peripheral Nerve Block: Patient did not receive a nerve block
[2024-01-04 11:25] VITALS: BP 108/71; PULSE 112; RESP 18; TEMP 36.8; O2SAT 94
[2024-01-04 17:25] VITALS: BP 97/63; PULSE 86; RESP 18; TEMP 36.9; O2SAT 95
[2024-01-04 19:30] VITALS: BP 112/75; PULSE 96; RESP 18; TEMP 37.1
[2024-01-04] MEDS: Hamamelis Leaf/Glycerin 100 EACH BOX PR (22:50)
[2024-01-04] MEDS: Dibucaine 1% 28 GM TUBE (22:51)
[2024-01-05] MEDS: Ibuprofen 600 MG TAB PO ×2 (04:48→12:43)
[2024-01-05] MEDS: Acetaminophen 325 MG TAB 650 MG PO ×2 (04:48→12:42)
--- NOTE | 2024-01-05 07:47 | W.PM.OBPNV1 ---
Date of service: 01/05/24 Time of Service: 07:47 Assessment and Plan Assessment and plan (1) (normal spontaneous vaginal delivery): Status: Acute Assessment and plan: day #2 status postnormal spontaneous vaginal delivery. Overall doing well. Anticipate discharge home later today. Orders placed. Subjective Subjective Interval history: Patient seen this morning. Doing well overall. Little sleep last night due to baby cluster feeding. Pain is improving. Vital signs are stable. Patient's Mood: Appropriate [place] baby status: Doing well, Nursing well and Strong Bonding Observed feeding status: Exclusively breast feeding Exam Physical Exam Vital signs: Temp Pulse Resp BP Pulse Ox 98.8 F 96 H 18 112/75 95 01/04/24 19:30 01/04/24 19:30 01/04/24 19:30 01/04/24 19:30 01/04/24 17:25 Vital Signs Reviewed: Yes Constitutional Constitutional: no acute distress HEENT Exam HEENT Exam: Normal Respiratory Exam Respiratory Exam: Normal Cardiovascular Exam Cardiovascular Exam: Normal Abdominal Exam Comments: Soft, nontender Fundal Exam Fundus: Below Umbilicus and Firm Extremities Exam Extremity Exam: Normal and Edema (1+ bilateral); negative Calf Tenderness Skin Exam Skin Exam: Normal Neurological Exam Neurological Exam: Normal Psychiatric Exam Psychiatric Exam: Normal Results Hemoglobin/Hematocrit: Hgb 11.2 g/dL (11.2-15.7) 01/04/24 06:30 Hct 32.5 % (36.0-46.0) L 01/04/24 06:30 Abnormal Lab Findings: Abnormal Labs 01/04/24 06:30 WBC 17.53 H RBC 3.59 L Hct 32.5 L
[2024-01-05 07:50] VITALS: BP 136/93; PULSE 105; RESP 18; TEMP 36.8; O2SAT 95
--- NOTE | 2024-01-05 07:53 | DSE_ITS ---
Date of service: 01/05/24 Time of Service: 07:53 DS: Diagnosis Discharge Diagnosis (1) (normal spontaneous vaginal delivery): Status: Acute Asessment and Plan: day 2 status postnormal spontaneous vaginal delivery. Doing well. Discharge home today. Follow-up in 2 and 6 weeks. Discharge Plan Disposition Patient Disposition: Home Condition: Good Discharge Details Reason For Visit: IUP @ 40 w4d Admit Date/Time: 01/02/24 17:59 Admit Provider: Crystal Morales Attending Provider: Crystal Morales [facility] Course: Patient presented for labor induction at term. She received misoprostol for cervical ripening, followed by Pitocin augmentation. She had spontaneous rupture of membranes for clear fluid and an epidural placed for pain control. At the time of epidural placement, she had rapid progression to completely dilated. She delivered a viable male over second-degree midline laceration of her perineum. There is nuchal cord x 3 which was easily reduced. Her laceration was repaired and appropriately hemostatic. She had an uncomplicated course and was discharged home day #2 ambulating, tolerating regular diet and oral pain medication with stable vital signs. Her male infant was circumcised prior to discharge. She will be seen in the office in 2 and 6 weeks. All questions answered. Home Meds and New Rx's Prescriptions: New ibuprofen 800 mg tablet 800 mg PO Q8H PRNQty: 60 0RF No Action loratadine 10 mg tablet,disintegrating 10 mg PO DAILY PRN (Reason: allergy symptoms) Qty: 90 3RF albuterol sulfate 90 mcg/actuation HFA aerosol inhaler 2 puff inhalation Q6H PRN (Reason: shortness of breath or wheezing) Qty: 8.5 0RF (DME) Aerochamber MV Spacer See Rx Instructions .Route Qty: 1 0RF Rx Instructions: As directed calcium carbonate [Calcium 500] 500 mg calcium (1,250 mg) tablet,chewable 500 mg PO DAILY cholecalciferol (vitamin D3) 50 mcg (2,000 unit) capsule 50 mcg PO DAILY aspirin 81 mg tablet,delayed release (DR/EC) 81 mg PO DAILY Qty: 90 4RF Rx Instructions: 1 tab daily alternating with 2 tabs every other day One-A-Day 400 mcg- 25 mg tablet,chewable 1 tab PO DAILY budesonide-formoterol [Symbicort] 160-4.5 mcg/actuation HFA aerosol inhaler 2 inh inhalation BID Qty: 10.2 1RF Rx Instructions: 2 puffs twice a day and may use every 4-6hrs for breakthrough shortness of breath if needed Discharge Instructions Activity:: Pelvic rest Equipment/Supplies:: No Equipment Needed Diet:: As Tolerated OB:DS Summary Summary Vaginal Delivery Method: Spontaneaous Laceration Description: Perineal Laceration Extension: Second Degree Contraception Discussed Contraception Discussed: Yes, Gender-Baby A: Male Status at Discharge Functional status at discharge: independent ambulation Overall status at discharge: patient is progressing back to baseline Mental Status: mental status grossly normal Speech and Movement: speech and movement normal Mood: congruent mood Affect: normal affect Quality:SDOH Health Related Social Needs: No Data to Display Exam Physical Exam Vital signs: Temp Pulse Resp BP Pulse Ox 98.8 F 96 H 18 112/75 95 01/04/24 19:30 01/04/24 19:30 01/04/24 19:30 01/04/24 19:30 01/04/24 17:25 Narrative: See physical exam from progress note dated 01/05/2024. PFSH All Active Problems (Updated 01/04/24 @ 10:53 by Bre Morales DO) (normal spontaneous vaginal delivery) (Acute) 01/23. . 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 Father Hyperlipidemia Sister No problems noted. Brother No problems noted. Son No problems noted. Maternal Grandfather , 78 Diabetes Stomach cancer Prostate cancer Lung cancer Paternal Grandfather , 79 Colon cancer Maternal Grandmother Diabetes Uterine cancer Paternal Grandmother Hyperlipidemia Hypertension Heart disease Social History Smoking/Tobacco Use Status: Never Tobacco: How many years used: 0 Second Hand Exposure: Yes Smoking risk assessment performed?: Yes Alcohol Intake: current Alcohol Intake frequency: holidays/special occasions only Alcohol type: hard liquor Drug use: Never Substance use type: does not use Household members: spouse, family and children Housing: house Communication Needs: None Do you need help understanding health information?: Never Pets and animals: Yes Pets and animals: dog(s) Sexually active: Yes Do you think of yourself as: straight/heterosexual Current gender identity: female What is your relationship status?: How often do you talk on the phone with friends or family?: twice per week How often do you get together with friends or relatives?: three or more times per week How often do you attend pentecostal or jewish services?: 4 or more times per year Do you belong to any clubs or organized social groups?: decline to answer Panel score (0-1 are the most socially isolated patients): 3 What type of physical activity do you participate in: walking Duration: 30-45 minutes/day Frequency: daily Sherrie/Voodoo: Rastafari Special sherrie needs: No Seatbelt use: always Helmet use: Yes Drive intox or ride w/intox driver engineer: No Do you feel safe at home: Yes Do you feel safe in your relationship?: Yes History History 3 Para 1 Hx # Term Pregnancies 1 Multiple births 0 Hx # Pregnancies 0 Ectopic pregnancies 0 AB induced 0 Hx Number of Living Children 1 AB spontaneous 1 Past Pregnancies Del. Date GA/Weeks # Preg Succ Route Wgt Sex Labor Lgth Anesth esia Location Prov Complic 05/17/19 42 No Yes vaginal 8 lb 10 oz Male long induction regiona l [facility] Delivery Date: 05/17/19 Last Updated by: Thalia Callejas IOL for postdates, long 2nd stage, episiotomy Kemar DS: Data Vitals/I&O Vitals and I&O: Vital Signs Temperature 98.8 F 01/04/24 19:30 Temperature Source Oral 01/04/24 19:30 Pulse 96 H 01/04/24 19:30 Pulse Rhythm Regular 01/04/24 19:30 Respiratory Rate 18 01/04/24 19:30 Respiratory Depth Normal 01/03/24 08:00 Blood Pressure 112/75 01/04/24 19:30 Blood Pressure Mean 87 01/04/24 19:30 Pulse Oximetry 95 01/04/24 17:25 Oxygen Delivery Method Room Air 01/02/24 18:08 Oxygen Flow Rate 0 01/02/24 18:08 Pain Level 0 01/04/24 17:25 Intake & Output 01/04/24 01/04/24 01/05/24 11:59 23:59 11:59 Intake Total 960 / 960 Output Total 650 / 650 Balance 310 / 310 Intake: Oral 960 / 960 Output: Urine 650 / 650 Other: Urine Color Pale
[2024-01-05 12:35] VITALS: BP 112/70; PULSE 98; RESP 18; TEMP 36.8; O2SAT 94
[2024-01-05] MEDS: Docusate Sodium 100 MG CAP PO (12:43)
== END 2024-01-05 15:40 | disposition home or self-care (01) | DRG 807 ==
PROVIDERS: Obstetrics & Gynecology; Admitting Provider Obstetrics & Gynecology Gynecology; PCP Nurse Practitioner Family; Visit Provider Obstetrics & Gynecology Gynecology
DX: O26.893 Other specified pregnancy related conditions, third trimester (principal); Z37.0 Single live birth; Z67.91 Unspecified blood type, Rh negative; Z3A.40 40 weeks gestation of pregnancy; O48.0 Post-term pregnancy; E66.9 Obesity, unspecified; F41.8 Other specified anxiety disorders; R05.3 Chronic cough; R00.0 Tachycardia, unspecified; E78.5 Hyperlipidemia, unspecified; J30.9 Allergic rhinitis, unspecified; K90.0 Celiac disease; O99.892 Other specified diseases and conditions complicating childbirth; O99.62 Diseases of the digestive system complicating childbirth; O99.52 Diseases of the respiratory system complicating childbirth; O99.344 Other mental disorders complicating childbirth; O99.284 Endocrine, nutritional and metabolic diseases complicating childbirth; O99.214 Obesity complicating childbirth; O69.81X0 Labor and delivery complicated by cord around neck, without compression, not applicable or unspecified; O70.1 Second degree perineal laceration during delivery
CPT/HCPCS: 36415; 85027; 86850; 86900; 86901; 59200; J3490

== ENCOUNTER 2024-01-08 09:53 | Outpatient (CLI) | payer OTHER, SELFPAY ==
--- NOTE | 2024-01-08 10:24 | W.PM.PROGNOT ---
Date of Service Date of service: 01/08/24 Time of Service: 10:15 Assessment and Plan Assessment and plan (1) infection of vulva: Status: Acute Assessment and plan: Will treat pt with Bactrim for suspected infection as she has taken that before. She is instructed to call the office first thing in the am if she is not feeling significantly better so she can be re-evaluated. Otherwise she will f/u in 1wk as scheduled. She will call prior to that if any other concerning sxms arise. Subjective Subjective Interval history since last seen: Pt comes due to concerns for vulvar swelling and increased pain. She is 5 days pp s/p NVD with a 2nd degree vaginal laceration and 1st degree extension into the right labia. Pt reports that over the past day or 2 the swelling and pain have increased. She denies obvious fever/chills. She denies dizzyness and is able to ambulate without difficulty. She is having moderate bleeding but no increase since delivery. She was coming in today for a weight check for the baby anyways. Exam Const General: cooperative, healthy appearing and no acute distress HENAK Head: normocephalic and atraumatic Ears: hearing grossly normal bilaterally Resp Effort & Inspection: normal respiratory effort and able to speak in complete sentences Other: Small amount of swelling of the lower right labia - pt says this has been fairly stable in size but is increasingly painful. Slight erythema noted over the swelling as well as into the mid-labia. The introitus looks well healed. No significant pain deeper into the vagina. No obvious fluid collection or drainage. Neuro General: patient alert and patient awake Psych Appearance: grossly normal Mental Status: mental status grossly normal Speech and Movement: speech and movement normal Affect: normal affect Attitude: cooperative Thought Process: normal Thought Content: normal Time Spent with Patient Time Spent with Patient: <25 minutes Time was spent: preparing to see the patient(eg.review tests), obtaining and/or reviewing separately otained hiistory, ordering medications,tests, procedures, indepentently interpreting results and counseling the patient
[2024-01-08] MEDS: Sulfameth/Trimeth DS TAB 1 TAB PO (10:42)
[2024-01-08 10:46] LABS: Abs Immature Grans 0.07 10^3/uL (0.0-0.06); Absolute Basophil Count 0.04 10^3/uL (0.0-0.2); Absolute Eosinophil Count 0.08 10^3/uL (0.0-0.7); Absolute Lymphocyte Count 1.95 10^3/uL (1.2-3.4); Absolute Monocyte Count 0.48 10^3/uL (0.1-0.8); Absolute Neutrophil Count 5.71 10^3/uL (1.2-6.7); Basophils % 0.5 %; HCT 29.8 % (36.0-46.0); HGB 9.9 g/dL (11.2-15.7); Immature Grans % 0.8 %; Lymphocytes % 23.4 %; MCH 30.5 pg (27.0-33.0); MCHC 33.2 % (32.0-36.0); MCV 92 fL (80-95); MPV 9.4 fL (8.0-11.0); Monocytes % 5.8 %; Neutrophils % 68.5 %; Platelet Count 235 10^3/uL (130-400); RBC 3.25 10^6/uL (3.93-5.22); RDW 13.4 % (11.7-14.6); RDW-SD 45.1 fL; WBC 8.33 10^3/uL (4.4-10.8)
== END 2024-01-08 11:15 ==
LOC: BCD 09:55 → OBS 10:18
PROVIDERS: PCP Nurse Practitioner Family; Visit Provider Obstetrics & Gynecology
DX: O86.19 Other infection of genital tract following delivery (principal)
CPT/HCPCS: 36415; 85025

== ENCOUNTER 2024-03-16 00:40 | Outpatient (CLI) | payer OTHER, SELFPAY ==
--- NOTE | 2024-03-16 07:30 | DI.MAMMO_ITS ---
Exam(s) US BREAST RT LIMITED MG MAMMO DIAGNOSTIC BI EXAM: MG MAMMO DIAGNOSTIC BI CLINICAL HISTORY: dark red blood from R breast areolar gland, bloody nipple dischar. COMPARISON: US US BREAST RT LIMITED from 03/16/2024 baseline examination. TECHNIQUE: Craniocaudal and mediolateral oblique Full Field Digital Mammography views of both with C omputer Aided Diagnosis followed by Tomosynthesis and right breast ultrasound. FINDINGS: Mammography/Tomosynthesis: Masses/Architectural Distortion: None seen. Microcalcifications: No suspicious pleomorphic-type are seen. Skin Thickening/Nipple Retraction: None. Right breast US: Echotexture: Normal appearance of the glandular tissue. Shadowing: No suspicious foci. Cyst: None. Solid lesions: None seen. Ductal dilation: Minimally dilated ducts in the subareolar region. IMPRESSION: 1. No evidence of malignancy is noted. 2. Unless there is more urgent need, follow-up screening mammography is recommended, as per [employer] guidelines. BI-RADS Category 2 - Benign Findings Breast Density - Category B - Scattered areas of fibroglandular density A negative radiographic report should not delay biopsy if a dominant or clinically suspicious mass is present. Up to ten percent of cancers are not identified on mammography. A negative report may reinforce clinical impression. Adenosis and dense breasts may obscure an underlying neoplasm. False positive reports average 6 to 10%. Patient will receive a letter notifying them of these results.
== END 2024-03-16 01:00 ==
PROVIDERS: PCP Nurse Practitioner Family; Visit Provider Obstetrics & Gynecology Gynecology
DX: N64.4 Mastodynia (principal); O92.29 Other disorders of breast associated with pregnancy and the puerperium
CPT/HCPCS: 76642; 77062; 77066; G0279

== ENCOUNTER 2024-08-22 16:14 | Outpatient (REF) | payer OTHER, SELFPAY ==
[2024-08-22 13:53] LABS: Bilirubin Negative (Negative); Blood Negative (Negative); Clarity Clear (Clear); Glucose Negative (Negative); Ketones Negative (Negative); Leukocyte Esterase Negative (Negative); Nitrite Negative (Negative); Specific Gravity 1.025 (1.005-1.025); Urobilinogen 0.2 mg/dL (Up to 0.2)
== END 2024-08-22 16:15 | disposition home or self-care (01) ==
LOC: LBN 16:14
PROVIDERS: PCP Nurse Practitioner Family; Visit Provider Nurse Practitioner Family
DX: R30.0 Dysuria (principal)
CPT/HCPCS: 81003

== ENCOUNTER 2024-10-19 00:35 | Outpatient (CLI) | payer OTHER, SELFPAY ==
--- NOTE | 2024-10-19 06:45 | DI.MRI_ITS ---
Exam(s) MR PELVIS WO/W EXAM: MR PELVIS WO/W CLINICAL HISTORY: obvious mass left buttock,R22.9 TECHNIQUE: Multiplanar multisequence MRI of Pelvis was performed. The exam was performed in the prone position since the area in question is in the left buttock. A marker was placed over this area. CONTRAST MATERIAL: IV Contrast: 20 mL of Dotarem contrast administered. COMPARISON: No exams were available for comparison FINDINGS: Bones: There is no fracture or contusion pattern. No significant joint effusion is present. No bone marrow edema is seen. The SI joints and symphysis pubis are well maintained. Musculotendinous structures: Musculotendinous structures demonstrate no abnormality. Intrapelvic structures: Bladder is unremarkable. There is a fibroid in the anterior wall of the uterus at the lower uterine segment measuring 3.3 x 2.8 cm. The endometrial stripe appears normal. A tampon is present within the vagina. Small follicle present on the right ovary. Soft tissues: No abnormality is noted in the subcutaneous fat of the left buttock. The musculature is unremarkable in appear symmetric. No abnormal enhancing lesions. IMPRESSION: No abnormalities identified in the left buttock. Anterior lower uterine segment fibroid. DATA REPOSITORY:
[2024-10-19] MEDS: Gadoterate meglumine 20 ML SYRINGE IVP (11:04)
== END 2024-10-19 00:55 ==
LOC: DI 00:35
PROVIDERS: PCP Nurse Practitioner Family; Visit Provider Nurse Practitioner Family
DX: R22.2 Localized swelling, mass and lump, trunk (principal)
CPT/HCPCS: 72197

== ENCOUNTER 2024-12-03 11:04 | Day surgery (SDC) | payer OTHER, SELFPAY ==
[2024-12-03] VITALS (20 sets, daily range): BP systolic 93–128; BP diastolic 39–92; PULSE 72–99; RESP 16–26; TEMP 36.2–36.8; O2SAT 92–97; BMI 39.5
[2024-12-03] MEDS: Lactated Ringers 1,000 ML 80 ML IV (12:04)
--- NOTE | 2024-12-03 13:10 | W.ANESPRE ---
General Info Date of Service Date Performed: 12/03/24 Height: 5 ft 10 in Weight: 125 kg Body Mass Index (BMI): 39.5 Surgical Procedure: Operation Date: 12/03/24 13:10 Proposed Procedure Side Surgeon p Excision Buttock Lipoma Left Talita Clay MD Meds Allergies and Home Medications Allergies Allergy/AdvReac Type Severity Reaction Status Date / Time amoxicillin (Amoxicillin) Allergy Severe hives Verified 12/03/24 11:40 azithromycin Allergy Severe Hives Verified 12/03/24 11:40 Penicillins Allergy Severe Hives Verified 12/03/24 11:40 shellfish derived Allergy Severe hives Verified 12/03/24 11:40 gluten AdvReac Severe Diarrhea Verified 12/03/24 11:40 Home Medication ?Medication ?Instructions ?Recorded loratadine 10 mg disintegrating 10 mg PO DAILY PRN allergy 02/17/22 tablet symptoms #90 tabs inhalational spacing device #1 ea 03/26/23 (Aerochamber MV spacer) vitamin no.167-folic acid 1 tab PO DAILY 06/06/23 400 mcg-dha 25 mg chewable tablet (One-A-Day ) calcium carbonate (Calcium 500) 500 mg PO DAILY 06/14/23 cholecalciferol (vitamin D3) 50 50 mcg PO DAILY 06/14/23 mcg (2,000 unit) capsule albuterol sulfate 90 mcg/actuation 2 puff inhalation Q6H PRN 04/18/24 aerosol inhaler shortness of breath or wheezing #8.5 grams Current Visit Medications: Current Medications Generic Name Dose Route Start Last Admin Trade Name Freq PRN Reason Stop Dose Admin Ringer's Solution 1,000 mls @ 80 mls/hr 12/03/24 06:00 12/03/24 12:04 IV 12/03/24 23:59 80 mls/hr INFUSION TABITHA Administration Cefazolin Sodium/Dextrose 2 gm in 50 mls @ 100 mls/hr 12/03/24 06:00 Ancef Duplex IVPB 12/03/24 23:59 PREOP TABITHA IV Miscellaneous Supplies 1 each 12/03/24 06:00 Iv Access IV 12/03/24 23:59 DIRECTED TABITHA Sodium Chloride 0 ml 12/03/24 06:00 Normal Saline Flush 10 Ml Syr IV 12/03/24 23:59 PRN PRN Sodium Chloride 0 ml 12/03/24 06:00 Normal Saline 10 Ml Vial IJ 12/03/24 23:59 DIRECTED PRN Sterile Water 0 ml 12/03/24 06:00 Water,Injection,Sterile 10 Ml Vial IJ 12/03/24 23:59 DIRECTED PRN PFSH Active Problems Active Problems: Problem Status Onset Code Lipoma of buttock Acute D17.1 Dyspareunia in female Acute N94.10 Situational anxiety Chronic F41.8 Chronic cough Chronic R05.3 Tachycardia Chronic R00.0 Hyperlipidemia Chronic E78.5 Celiac disease Chronic K90.0 Allergic rhinitis Chronic J30.9 Pelvic floor weakness Chronic N81.89 Obesity Chronic E66.9 Medical History Medical History 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 Date GA/Weeks # Preg Succ Route Wgt Sex Labor Lgth Anesthesia Location Prov [facility] 05/17/19 42 No Yes vaginal 3912.234 g Male long induction regional [facility] 01/03/24 40 Yes vaginal 4337.[address] Morales Delivery Date: 05/17/19 Last Updated by: Thalia Callejas IOL for postdates, long 2nd stage, episiotomy [place] Delivery Date: 01/03/24 Last Updated by: MD Cristian Castanon IOL. rapid descent after epidural. R labia hematoma. Vital Signs and Lab Results Vital Signs Most Recent Vital Signs in EMR: Most Recent Vital Signs Temp Pulse Resp BP Pulse Ox 36.3 C L 87 16 128/92 H 97 12/03/24 11:45 12/03/24 11:45 12/03/24 11:45 12/03/24 11:45 12/03/24 11:45 Anesthesia Assessment and Plan Anesthesia History Personal History: No History of Anesthesia Complications Family History: No Family History of Anesthesia Complications Exercise Tolerance Exercise Tolerance: Metabolic Equivalents>4 Cardiac & Pulmonary Exam Cardiac Exam: Normal S1/S2 Heart Sounds Pulmonary Exam: Clear Bilateral Breath Sounds Implantable Cardiac Device Does patient have a Pacemaker or an ICD?: No Airway Exam Known Difficult Airway: No Mallampati Class: 2 Mouth Opening: Normal (> 3cm) Thyromental Distance: Greater than 3 cm Neck Range of Motion: Full ROM Neck Circumference: Normal Teeth Condition: Normal Dentition ASA Classification ASA Score: ASA 2 Emergency Case?: No NPO Status NPO Status: NPO Clears >2 hours, Solids >8 hours Status Status: Negative HCG Anesthesia Plan Resuscitation Status: Full Code Anesthesia Technique: General Anesthesia Airway Planned: Endotracheal Tube Monitors Used: Standard Monitors Preoperative Comments:: 39 yo female for buttock lipoma. Sig PMHx: RAD (albuterol. This is no longer an issues. Has not used her inhaler in months), GERD (no meds, not currently an issue), anxiety, epilepsy (last sz at 9 yo). never smoker. occ EtOH. ECG: sinus tach. PFTs: WNL, negative methacholine challenge. Previous Anes: - labor epidural, UGO at 6 cm, 1 attempt.
[2024-12-03] MEDS: ceFAZolin 2 GM/50 ML BAG IVPB (14:18)
[2024-12-03] MEDS: Bupivacaine 0.5% Pres-Free W/EPI 30 ML VIAL (14:45)
--- NOTE | 2024-12-03 15:05 | SOFT_PTH ---
PATIENT: Joyce Madden LOC: [facility] U#:[id number] AGE/SX: 39/F ROOM: RE12/03/[address]: Talita Clay MD : 1985 BED: DIS: 12/03/2024 SPEC #: [id number] RECD: 12/03/24 18:21 STATUS: DAVID RERenetta #: [id number] GUY: 12/03/24 15:[address]: Talita Clay DEPT: Surgical Specimen RECD BY: Marialuisa June ENTERED: 12/03/24 18:22 SP TYPE: SOFT OTHR DR: JAIRON Perez Tissues: 1 - SOFT TISSUE MISC (INC. LIPOMA) Procedures: GROSS AND MICRO LEVEL 3 Comments: [id number]
--- NOTE | 2024-12-03 15:23 | W.PM.DSUDISC ---
Date of service: 12/03/24 Discharge Plan Disposition Patient Disposition: Home Condition: Stable Discharge Details Reason For Visit: lipoma excision Attending Provider: Talita Clay Primary Care Provider: Cassie Beatty Recommendations for Follow Up Recommended tests to be ordered by follow up provider: none Home Meds and New Rx's Prescriptions: New hydrocodone-acetaminophen 5-325 mg tablet 1 tab PO Q6H PRN (Reason: pain) Qty: 10 0RF Continued loratadine 10 mg tablet,disintegrating 10 mg PO DAILY PRN (Reason: allergy symptoms) Qty: 90 3RF (DME) Aerochamber MV Spacer See Rx Instructions .Route Qty: 1 0RF Rx Instructions: As directed calcium carbonate [Calcium 500] 500 mg calcium (1,250 mg) tablet,chewable 500 mg PO DAILY cholecalciferol (vitamin D3) 50 mcg (2,000 unit) capsule 50 mcg PO DAILY albuterol sulfate 90 mcg/actuation HFA aerosol inhaler 2 puff inhalation Q6H PRN (Reason: shortness of breath or wheezing) Qty: 8.5 0RF One-A-Day 400 mcg- 25 mg tablet,chewable 1 tab PO DAILY Discharge Instructions Instructions: Lipoma Additional Instructions: Shower in 48 hours. Wash gently over steri-strips with soapy hands, rinse, pat dry. Don't peel strips or submerge them under water. The longer they stay on, the nicer the scars will heal. Ok to walk, climb stairs, and resume normal activities of daily living. Avoid activites that make it feel like your incision is pulling open. Swelling is normal and expected. It may look like your lipoma is still there. A large well defined area of lipoma was removed today. Diet as tolerated. Call or return for fever or incisional problems. Activity:: Activity as Tolerated Shower/Bathe:: 48 hours Diet:: As Tolerated Discharge Orders Discharge Orders: Discharge Order (Routine); Ordered 12/03/24 Ordered By: Talita Clay DS: Diagnosis Discharge Diagnosis (1) Lipoma of buttock: Status: Acute
--- NOTE | 2024-12-03 15:28 | ROE_ITS ---
Operative Note Operative Note PRE-OP DIAGNOSIS: lipoma of left buttock POST-OP DIAGNOSIS: same PROCEDURE: Excision of left buttock lipoma SURGEON: Talita Clay CHILD DEVELOPMENT ASSISTANT: Pam Beaulieu ANESTHESIA TYPE: Local By Surgeon and General LMA/ETT Refer to Anesthesia Record ESTIMATED BLOOD LOSS: 10 PATHOLOGY: other (left buttock lipoma) COMPLICATIONS: None Procedure Description: This patient is a 39-year-old female who developed asymmetry in the subcutaneous fat between her 2 buttocks after an injury to the left buttock. In the area of injury she had a large rounded protuberant soft tissue lump. Ultrasound and MRI were unremarkable. On examination it was very evident that there was lipomatous growth in the subcutaneous tissue. The area produced a lot of symptoms for her and was growing over time so we elected for excision. Informed consent was obtained after discussion of the procedure risks and benefits and alternatives and expectations. The patient was taken to the operating room. The operating room she was placed supine on the cart. General anesthesia was induced and she was rotated to a prone position on the operating table. SCDs were placed and all pressure points were padded appropriately. The left buttock was prepped and draped in usual sterile fashion. The lipoma was less evident with her in the prone position in standing position. The preoperative skin marking was identified and palpation of this area revealed a change in the texture of the subcutaneous fat, confirming the relation of the lipomatous growth. An incision was made in the skin after local anesthetic was infiltrated into the surrounding skin and soft tissues. Dissection below Sol's fascia revealed bulbous and lipomatous fat of the buttock. The fat in the area of lipoma was well-defined and lobulated. It was yellow and consistent with lipoma. There were no atypical features. Finger dissection was used to free the bulbous lipomatous fat from the surrounding normal subcutaneous tissue. Cautery was used to take down the septations and fibrous bands between the lipoma and the surrounding normal fat. It was removed from the body and passed off the field as a specimen. The lipoma measured 10 cm x 6 cm x 4 cm. The cavity was irrigated clean. The remainder of the local anesthetic was infiltrated into the surgical site. The wound was closed in 2 layers. The subcutaneous tissue was reapproximated in simple interrupted fashion using 3-0 Vicryl sutures. The skin was then closed with a running subcuticular 4-0 Monocryl suture. The skin was washed and dried. Steri-Strips were applied. All sponge and instrument counts were correct at the end of the case. The patient tolerated the procedure well. She extubated in the operating room and transferred to the recovery room in stable condition. There were no complications. Date of Procedure: 12/03/24
--- NOTE | 2024-12-03 16:09 | W.ANESPOSTOP ---
Postoperative Evaluation Date, Time and Location Date Performed: 12/03/24 Time Performed: 16:10 Patient Location: PACU Vital Signs Most Recent Imported Vital Signs: Most Recent Vital Signs Temp Pulse Resp BP Pulse Ox 36.8 C 95 H 23 107/72 93 12/03/24 16:05 12/03/24 15:46 12/03/24 15:46 12/03/24 15:45 12/03/24 15:46 Pain Score Most Recent Pain Score: Most Recent Pain Score Pain Level 0 12/03/24 16:05 Assessment Mental Status: Arousable with meaningful communication Airway and Respiratory Function: Patent airway with normal (patient baseline) respiratory exam Cardiovascular Function: Hemodynamically Stable Hydration Status: Adequately Hydrated Nausea & Vomiting: No Nausea or Vomiting Pain: Pain is tolerable per patient Peripheral Nerve Block: Patient did not receive a nerve block
== END 2024-12-03 17:19 | disposition home or self-care (01) ==
PROVIDERS: PCP Nurse Practitioner Family; Visit Provider Surgery
PROC: (CPT 11406; principal; 2024-12-03 13:00)
DX: D17.1 Benign lipomatous neoplasm of skin and subcutaneous tissue of trunk (principal); E78.5 Hyperlipidemia, unspecified; K90.0 Celiac disease; E66.9 Obesity, unspecified; R05.3 Chronic cough; F41.8 Other specified anxiety disorders
CPT/HCPCS: 11406; 12034; 88304; J0131; J0690; J1100; J1805; J2003; J2371; J2405; J2704

== ENCOUNTER 2025-02-18 09:33 | Outpatient (REF) | payer BC, SELFPAY ==
--- NOTE | 2025-02-18 09:20 | PAPFT_PTH ---
PATIENT: Joyce Madden LOC: [facility] U#:[id number] AGE/SX: 39/F ROOM: RE02/18/[address]: Bre Morales DO : 1985 BED: DIS: 02/18/2025 SPEC #: [id number] RECD: 02/18/25 12:43 STATUS: SEJALKalpesh REQ #: [id number] GUY: 02/18/25 09:[address]: Bre Morales DEPT: [facility] Cytology RECD BY: Marialuisa June ENTERED: 02/18/25 12:43 SP TYPE: PAPFT OTHR DR: Cassie Beatty, LEARN TO SWIM INSTRUCTOR Tissues: 1 - CX/ENDOCX FOR PAP SMEARS Procedures: PAP THIN PREP/[facility] Screening HPV DNA PROBE Comments: [id number] (HPV 16 & 18/45)
== END 2025-02-18 09:34 | disposition home or self-care (01) ==
LOC: LBN 09:33
PROVIDERS: PCP Nurse Practitioner Family; Visit Provider Obstetrics & Gynecology
DX: Z12.4 Encounter for screening for malignant neoplasm of cervix (principal)
CPT/HCPCS: 88142; 87624

== ENCOUNTER 2025-03-07 08:17 | Outpatient (CLI) | payer BC, SELFPAY ==
[2025-03-07 08:33] LABS: HCT 38.9 % (36.0-46.0); HGB 12.7 g/dL (11.2-15.7); MCH 26.8 pg (27.0-33.0); MCHC 32.6 % (32.0-36.0); MCV 82 fL (80-95); MPV 9.6 fL (8.0-11.0); Platelet Count 283 10^3/uL (130-400); RBC 4.74 10^6/uL (3.93-5.22); RDW 13.0 % (11.7-14.6); RDW-SD 39.0 fL; WBC 7.04 10^3/uL (4.4-10.8)
[2025-03-07 09:20] LABS: Anion Gap 10.4 mmol/L (3-11); BUN 10 mg/dL (7-18); CO2 25.6 mmol/L (21.0-32.0); Calcium 8.7 mg/dL (8.5-10.1); Chloride 104 mmol/L (98-107); Cholesterol 194 mg/dL (<200); Glucose 95 mg/dL (74-106); HDL Cholesterol 55 mg/dL (>or=50); Potassium 3.9 mmol/L (3.5-5.1); Sodium 140 mmol/L (136-145); Vitamin D 25 Total 26 ng/mL (30-100)
[2025-03-07 09:37] LABS: Hemoglobin A1C 5.4 % (<5.7)
[2025-03-07 17:46] LABS: HBs Antibody, Quant 864.6 mIU/mL (See Note); Hepatitis B Surface Ab Positive (See Note)
[2025-03-07 18:26] LABS: Hep B Core Antibody Negative (Negative)
== END 2025-03-07 08:18 | disposition home or self-care (01) ==
LOC: LBO 08:19
PROVIDERS: PCP Nurse Practitioner Family; Visit Provider Nurse Practitioner Family
DX: E78.5 Hyperlipidemia, unspecified (principal); Z11.59 Encounter for screening for other viral diseases; O99.019 Anemia complicating pregnancy, unspecified trimester; E55.9 Vitamin D deficiency, unspecified
CPT/HCPCS: 36415; 80048; 80061; 82306; 85027; 86704; 86706; 83036